=== PATIENT | female | born 1945 | race Caucasian/White ===

== ENCOUNTER 2020-10-14 10:48 | Inpatient (IN) ==
[2020-10-14] MEDS ORDERED: 0.9 % SODIUM CHLORIDE 1,000 ML IV ONE (10:59)
[2020-10-14 11:26] LABS: POC Blood Urea Nitrogen 15 mg/dL (6-20); POC CO2 32 mmol/L (22-30); POC Calcium, Ionized 1.06 mmEq/L (1.16-1.32); POC Chloride 88 mEq/L (96-108); POC Creatinine 1.2 mg/dL (0.6-1.2); POC Glucose, Random 151 mg/dL (70-105); POC Hematocrit 41 % (36-48); POC Potassium 2.7 mEql/L (3.3-5.1); POC Sodium 132 mEq/L (133-145)
--- NOTE | 2020-10-14 11:57 | XRay Report ---
CLINICAL INFORMATION: pneumonia COMPARISON: 09/24/2012 FINDINGS: Heart size, mediastinum and pulmonary vessels are normal. Moderate chronic elevation right diaphragm is unchanged. A small left basilar infiltrate has developed. No effusion. IMPRESSION: Small left basilar infiltrate. Moderate chronic elevation of the right diaphragm Mild ileus - incompletely imaged Interpreted and Authenticated by: Jameson Nguyen 10/14/20
[2020-10-14 11:58] LABS: Basophils # (Auto) 0.06 K/mcL (0.00-0.20); Basophils % (Auto) 0.2 % (0.0-2.0); Eosinophils # (Auto) 0.03 K/mcL (0.00-0.70); Eosinophils % (Auto) 0.1 % (0.0-7.0); Hematocrit 39.2 % (36.0-48.0); Hemoglobin 13.4 g/dL (12.0-15.0); Lymphocytes # (Auto) 0.81 K/mcL (1.50-4.80); Lymphocytes % (Auto) 2.7 % (15.0-49.0); Mean Cell Volume 91.4 fL (80.0-100.0); Mean Corpuscular HGB Conc 34.2 g/dL (31.0-36.0); Mean Platelet Volume 9.2 fL (7.4-10.4); Monocytes # (Auto) 0.77 K/mcL (0.10-0.90); Monocytes % (Auto) 2.6 % (1.0-12.0); Neutrophils % (Auto) 94.4 % (38.0-78.0); Platelet Count 424 K/mcL (140-440); RBC 4.29 M/mcL (4.00-5.20); Red Cell Distribution Width 15.7 % (11.5-14.5); WBC 29.9 K/mcL (4.5-11.0)
[2020-10-14] MEDS ORDERED: VANCOMYCIN PER PHARMACY IV ONE (12:39)
[2020-10-14] MEDS ORDERED: cefTRIAXone 1 GM VIAL IV ONE (12:39)
[2020-10-14] MEDS ORDERED: POTASSIUM CHLORIDE 20 MEQ TABLET PO ONE (12:39)
[2020-10-14] MEDS ORDERED: MAGNESIUM OXIDE 400 MG TABLET PO ONE (12:39)
[2020-10-14] MEDS ORDERED: LACTATED RINGERS 1,000 ML IV ONE (12:39)
--- NOTE | 2020-10-14 12:47 | Emergency Department Note ---
HPI General Chief complaint: Altered Mental Status Stated complaint: altered mental status Time Seen by Provider: 10/14/20 10:51 Source: patient Mode of arrival: wheelchair Limitations: no limitations History of Present Illness HPI Narrative: Patient is a 75-year-old lady who arrives emergency department by private vehicle accompanied by her daughter complaining of hypotension. History is provided by the patient and her daughter and is somewhat limited by the patient's recollection of her symptoms. Patient has been drowsy and less interactive than usual today according to her daughter. Her daughter took her for scheduled outpatient MRI and the MRI staff are quite concerned about the patient's mental status. They also found her to be hypotensive so they sent her to the emergency department for further evaluation. The patient's daughter notes that her blood pressure has been somewhat labile over the past few days. The patient suffered a fall recently and was seen at [facility] and had stitches to her forehead after negative head CT. The patient's daughter thinks she may have actually passed out when standing up due to her low blood pressure. Patient denies any recent fever or chills. She denies any chest pain shortness of breath. She denies any recent vomiting or diarrhea. Related Data Home Medications Medication Instructions Recorded Confirmed HYDROcodone/APAP 10/325MG 1 tab PO Q4HP PRN 11/23/14 10/14/20 aspirin 81 mg PO DAILY 11/23/14 10/14/20 isosorbide mononitrate 60 mg PO DAILY 11/23/14 10/14/20 metoprolol succinate 12.5 mg PO BID 11/23/14 10/14/20 amlodipine 10 mg tablet 10 mg PO QDAY 09/25/20 10/14/20 cholecalciferol (vitamin D3) 100 100 mcg PO QDAY 09/25/20 10/14/20 mcg (4,000 unit) tablet losartan 25 mg tablet 25 mg PO QDAY 09/25/20 10/14/20 naproxen sodium 220 mg PO BID 10/14/20 10/14/20 umeclidinium [Incruse Ellipta] 1 inh INHALATION Q24H 10/14/20 10/14/20 Allergies Allergy/AdvReac Type Severity Reaction Status Date / Time bee venom protein (honey bee) Allergy Severe EXTREME Verified 10/14/20 13:19 HIVES, SWELLING egg [EGG] Allergy Intermediate Swelling Verified 10/14/20 13:17 Influenza Virus Vaccines Allergy Intermediate Swelling Verified 10/14/20 13:19 Sulfa (Sulfonamide Allergy Intermediate HIVES, Verified 10/14/20 13:17 Antibiotics) FACIAL [SULFA (SULFONAMIDE SWELLING ANTIBIOTICS)] aclidinium Allergy Unknown Unknown Verified 10/14/20 13:17 [From Tudorza Pressair] ezetimibe [From Vytorin] Allergy Unknown Unknown Verified 10/14/20 13:17 fentanyl [From Duragesic] Allergy Unknown Unknown Verified 10/14/20 13:19 Penicillins Allergy Unknown Unknown Verified 10/14/20 13:17 simvastatin [From Vytorin] Allergy Unknown Unknown Verified 10/14/20 13:17 acetaminophen AdvReac Mild SICK TO Verified 10/14/20 13:17 [From Darvocet-N] STOMACH Cyclobenzaprine AdvReac Mild DIDNT LIKE Verified 10/14/20 13:[address] IT MADE HER FEEL propoxyphene AdvReac Mild SICK TO Verified 10/14/20 13:17 [From Darvocet-N] STOMACH zinc AdvReac Unknown Unknown Verified 10/14/20 13:17 Review of Systems ROS ROS Narrative: Narrative: All systems ED: reviewed and negative except as stated. Constitutional: Denies fever and chills Cardiovascular: Denies chest pain Respiratory: Denies cough PFSH Narrative Patient History Narrative: Narrative: Medical/Surgical/Family History All Active Problems (Updated 10/14/20 @ 16:53 by Rodri Ramirez DO) Sepsis (Acute) Acute hypotension (Acute) Anxiety (Chronic) Hypercholesterolemia (Chronic) Pressure ulcer of buttock (Chronic) Vitamin D deficiency (Chronic) Hidradenitis suppurativa (Chronic) Overactive bladder (Chronic) Muscle weakness (Chronic) Cutaneous abscess (Chronic) Bowel obstruction (Chronic) Diverticulitis (Chronic) Hypertension (Chronic) Abnormal mammogram (Chronic) Hyperlipidemia (Chronic) Anemia of chronic disease (Chronic) Insomnia (Chronic) Allergic rhinitis (Chronic) Weight loss (Chronic) Coronary artery disease (Chronic) Degenerative joint disease (Chronic) Callus (Chronic) Fatigue (Chronic) Annual physical exam (Chronic) HPV (human papilloma virus) infection (Chronic) Neck pain (Chronic) Dysphagia (Chronic) Weakness (Chronic) Hypokalemia (Chronic) Edema of both lower extremities (Chronic) Spinal stenosis (Chronic) DDD (degenerative disc disease) (Chronic) Knee pain (Chronic) Pap smear abnormality of cervix with LGSIL (Chronic) Paresthesia (Chronic) Smoker (Chronic) Generalized abdominal pain (Chronic) Stress (Chronic) Bronchitis (Chronic) Urinary tract infection (Chronic) Urinary frequency (Chronic) Osteoporosis (Chronic) Encounter for long-term current use of medication (Chronic) Chronic back pain (Chronic) Hearing loss (Chronic) Partial small bowel obstruction (Chronic) Leukocytosis (Chronic) Small bowel obstruction due to adhesions (Chronic) Small bowel obstruction due to postoperative adhesions (Chronic) Medical History Abnormal mammogram Allergic rhinitis Anemia of chronic disease Annual physical exam Anxiety Bowel obstruction Bronchitis Callus Chronic back pain Coronary artery disease Cutaneous abscess DDD (degenerative disc disease) Degenerative joint disease Diverticulitis Dysphagia Edema of both lower extremities Encounter for long-term current use of medication Fatigue Generalized abdominal pain Hearing loss Hidradenitis suppurativa HPV (human papilloma virus) infection Hypercholesterolemia Hyperlipidemia Hypertension Hypokalemia Insomnia Knee pain Leukocytosis Muscle weakness Neck pain Osteoporosis Overactive bladder Pap smear abnormality of cervix with LGSIL Paresthesia Partial small bowel obstruction She is responeding to saline replacement, her sodium is improved. Continue NG tube decompression, NPO. She is also constipated, enema and magnesium laxatives are helping. She will benefit from bowel regimen with daily laxatives. Case discussed with Dr. Burk. Dr. Vázquez back later today. I am available by phone. Pressure ulcer of buttock Small bowel obstruction due to adhesions 1.High-grade small bowel obstruction on CT due to adhesions. -resolved with conservative management. Patient will follow with surgery as outpatient 2. History of CAD managed on aspirin/isosorbide/metoprolol 3. Hyponatremia secondary to nausea vomiting- resolved with crystalloids. Sodium 126->132->141 4.Hyperlipidemia managed on statin 5.DJD stable on home meds 6.history of nicotine dependence- actively smoking. Counseled on smoking cessation Small bowel obstruction due to postoperative adhesions Smoker Spinal stenosis Stress Urinary frequency Urinary tract infection Vitamin D deficiency Weakness Weight loss Surgical History History of appendectomy History of arthroscopy of right knee (~12/07/13) DR SANON History of X 2 History of colonoscopy (~08/2008) DR YI History of exploratory laparotomy (~05/26/15) History of foot surgery History of fusion of cervical spine (~05/05/10) C 5/6, C7/8, History of resection of small bowel (~10/26/12) 12/2012 Family History Brother , 2007 Lymphoma Colon cancer Family/Other Adult onset diabetes mellitus with ketoacidosis Son Diabetes Daughter Bladder cancer Social History Smoking Status: Current every day smoker Alcohol Intake Frequency: does not drink Substance Use: does not use Exam Narrative Narrative: Gen -patient is awake and alert and in no acute distress. HEENT -head is atraumatic. There is no conjunctival pallor or scleral icterus. Mucous membranes are quite dry. The patient is very hard of hearing. CV -S1-S2 regular rate and rhythm. Peripheral pulses are palpable. Resp -breathing is nonlabored. Lungs are clear to auscultation bilaterally. There is no cyanosis. GI - Abdomen is soft and nontender to palpation. There is no guarding or rebound tenderness. Derm -there are 2 small ulcers with surrounding erythema and purulent drainage over the patient's right buttock. There is no palpable fluctuance or crepitus to the soft tissues MSK -present extremities are atraumatic. Psych -patient has appropriate affect. Neuro -patient answers questions appropriately with fluent speech. Patient moves all present extremities equally. General Limitations: no limitations Course Vital Signs Vital signs: Vital Signs Temperature 96.6 F L 10/14/20 10:49 Pulse Rate 95 H 10/14/20 10:49 Respiratory Rate 16 10/14/20 10:49 Blood Pressure 62/39 10/14/20 10:49 Pulse Oximetry (%) 96 10/14/20 10:49 Temperature 96.6 F L 10/14/20 14:57 Pulse Rate 95 H 10/14/20 16:10 Respiratory Rate 14 10/14/20 16:10 Blood Pressure 135/96 10/14/20 16:00 Pulse Oximetry (%) 96 10/14/20 16:10 [facility] Narrative Medical decision making narrative: Patient presents complaining of hypotension with altered mental status. Her mental status greatly improved as her blood pressure did say do not think this was due to acute ischemic stroke or meningitis or encephalitis. Labs remarkable for significant leukocytosis and hypokalemia. Because of this I suspected possible colitis but the patient has not had any diarrhea. I think most likely source of her infection is her ulcers. She does have a questionable infiltrate on her chest x-ray but on review of the images myself I do not appreciate the area of the radiologist concern. She was given broad-spectrum antibiotics IV fluids and had some improvement in her symptoms. I discussed the test results with the patient and her daughter and recommended admission and they were agreeable. I discussed the patient's history examination and diagnostic findings with Dr. Casas, who agrees with the plan of care and accepts admission. Critical care time I provided at least 35 minutes of critical care time. This was separate from any separately billable procedures. The patient was given IV fluids to treat her hypotension and severe sepsis. She was given IV antibiotics to treat her s epsis. She was given magnesium and potassium supplementation to treat her severe hypokalemia and prevent cardiac dysrhythmias. The patient was closely monitored for response to treatment and stability of vital signs throughout their emergency department stay. Lab Data Lab results reviewed: Yes I reviewed the patient's lab results. Result diagrams: 10/14/20 11:11 Labs: Lab Results 10/14/20 10/14/20 10/14/20 Range/Units 11:11 11:11 11:11 WBC 29.9 H (4.5-11.0) K/mcL RBC 4.29 (4.00-5.20) M/mcL Hgb 13.4 (12.0-15.0) g/dL Hct 39.2 (36.0-48.0) % POC Hct 41 (36-48) % MCV 91.4 (80.0-100.0) fL MCH 31.2 (26.0-34.0) pg MCHC 34.2 (31.0-36.0) g/dL RDW 15.7 H (11.5-14.5) % Plt Count 424 (140-440) K/mcL MPV 9.2 (7.4-10.4) fL Neut % (Auto) 94.4 H (38.0-78.0) % Lymph % (Auto) 2.7 L (15.0-49.0) % [place] % (Auto) 2.6 (1.0-12.0) % Eos % (Auto) 0.1 (0.0-7.0) % Baso % (Auto) 0.2 (0.0-2.0) % Lymph # (Auto) 0.81 L (1.50-4.80) K/mcL [place] # (Auto) 0.77 (0.10-0.90) K/mcL Eos # (Auto) 0.03 (0.00-0.70) K/mcL Baso # (Auto) 0.06 (0.00-0.20) K/mcL Absolute Neutrophils 28.18 H (1.80-8.00) K/mcL POC Sodium 132 L (133-145) mEq/L POC Potassium 2.7 L* (3.3-5.1) mEql/L POC Chloride 88 L (96-108) mEq/L POC Total CO2 32 H (22-30) mmol/L POC BUN 15 (6-20) mg/dL POC Creatinine 1.2 (0.6-1.2) mg/dL POC Glucose 151 H (70-105) mg/dL POC WB Ioniz Calcium 1.06 L (1.16-1.32) mmEq/L Procalcitonin 1.97 H (<0.10) ng/mL Urine Color Urine Appearance (Clear) Urine pH (5.0-9.0) Ur Specific [place] (1.000-1.035) Urine Protein (Negative) mg/dL Urine Glucose (UA) (Negative) mg/dL Urine Ketones (Negative) mg/dL Urine Occult Blood (Negative) mg/dL Urine Nitrate (Negative) Urine Bilirubin (Negative) mg/dL Urine Urobilinogen mg/dL Ur Leukocyte Esterase (Negative) /ug Urine RBC (0-3) /hpf Urine WBC (0-4) /hpf Ur Squamous Epith Cells (0-4) /hpf Ur Transition Epith Cell (0-2) /hpf Urine Bacteria (0) /hpf Ur Culture Indicated? 10/14/20 Range/Units 13:04 WBC (4.5-11.0) K/mcL RBC (4.00-5.20) M/mcL Hgb (12.0-15.0) g/dL Hct (36.0-48.0) % POC Hct (36-48) % MCV (80.0-100.0) fL MCH (26.0-34.0) pg MCHC (31.0-36.0) g/dL RDW (11.5-14.5) % Plt Count (140-440) K/mcL MPV (7.4-10.4) fL Neut % (Auto) (38.0-78.0) % Lymph % (Auto) (15.0-49.0) % [place] % (Auto) (1.0-12.0) % Eos % (Auto) (0.0-7.0) % Baso % (Auto) (0.0-2.0) % Lymph # (Auto) (1.50-4.80) K/mcL [place] # (Auto) (0.10-0.90) K/mcL Eos # (Auto) (0.00-0.70) K/mcL Baso # (Auto) (0.00-0.20) K/mcL Absolute Neutrophils (1.80-8.00) K/mcL POC Sodium (133-145) mEq/L POC Potassium (3.3-5.1) mEql/L POC Chloride (96-108) mEq/L POC Total CO2 (22-30) mmol/L POC BUN (6-20) mg/dL POC Creatinine (0.6-1.2) mg/dL POC Glucose (70-105) mg/dL POC WB Ioniz Calcium (1.16-1.32) mmEq/L Procalcitonin (<0.10) ng/mL Urine Color Yellow Urine Appearance Clear (Clear) Urine pH 7.0 (5.0-9.0) Ur Specific [place] 1.006 (1.000-1.035) Urine Protein Negative (Negative) mg/dL Urine Glucose (UA) Negative (Negative) mg/dL Urine Ketones Negative (Negative) mg/dL Urine Occult Blood Negative (Negative) mg/dL Urine Nitrate Negative (Negative) Urine Bilirubin Negative (Negative) mg/dL Urine Urobilinogen Negative mg/dL Ur Leukocyte Esterase 25 A (Negative) /ug Urine RBC 2 (0-3) /hpf Urine WBC 13 H (0-4) /hpf Ur Squamous Epith Cells 2 (0-4) /hpf Ur Transition Epith Cell < 1 (0-2) /hpf Urine Bacteria Few A (0) /hpf Ur Culture Indicated? yes ED POC Tests ED POC Tests: JULITO - SARS Antigen Negative EKG Data EKG #1: EKG attestation: Yes I reviewed and interpreted this EKG. EKG results narrative: EKG performed at 11:25 AM: Sinus rhythm, rate 64. Few PVCs. Normal P wave morphology. There are Q waves present in the inferior leads. No ST segment deviation. T waves are diffusely flattened. Normal CT QRS duration. QTc is prolonged at 509. No old EKG immediately available for comparison. EKG was interpreted by me. Discharge Plan Patient/Caregiver Discharge Instructions Pt seen by RESIDENTIAL MENTAL HEALTH WORKER/PA only: No Clinical Impression: Sepsis, Acute hypotension Patient Disposition: Xfer As Inpt ([facility]) Condition: Fair Discharge Date/Time: 10/14/20 15:01
[2020-10-14] MEDS ORDERED: CEFEPIME 2 GM VIAL IV ONE (12:56)
--- NOTE | 2020-10-14 13:09 | Internal Med History&Physical ---
HPI History of Present Illness Patient information: Note initiated : 10/14/20 at 1:07 pm Service Date, if different from initiated Date: [] Patient: Ana Yee a 75 y/o F admitted on for Altered Mental Status. Chief Complaint: Weakness and confused History of present illness: Ms. Yee is a 75 year old F with history of hypertension, CAD who presented to the ER along with her daughter Ana after she was noted to be profoundly weak lethargic confused during her MRI. The day prior to presentation patient fell while trying to get to her bed and slid down hurting her forehead. She was taken to [facility] ER where he had a negative CT and underwent suturing of the forehead laceration site. She was referred for an MRI of lower back to evaluate possible osteomyelitis and concerns of wound infection. She has been getting lethargic and fatigued and minimally responsive over the last 24 hours and concern was raised during MRI and she was directed to the ER for evaluation. Initial work-up in the ER was consistent with septic shock with white count 30,000, blood pressure 60s and elevated lactate. Patient was probably started on antibiotics after cultures were drawn along with crystalloids with resultant improvement in systolics. Also potassium was noted to be 2.7 and was started on replacement. Subsequently hospitalist service was consulted. Since evaluation suspected left basilar infiltrate/right gluteal wound infection. At the time of my evaluation patient is accompanied with her daughter. She is minimally responsive. She was able to answer some of the question and participating leading questions to review of systems. She denies chest pain, thunderclap headache, unilateral weakness, diarrhea. She has developed right posterior gluteal wound that has been managed by Dr. Sammy Tavares surgery. Review of systems 10 point review system was performed and is negative except for ones discussed above PFSH PFSH All Active Problems (Updated 10/14/20 @ 16:53 by Rodri Ramirez DO) Sepsis (Acute) Acute hypotension (Acute) Anxiety (Chronic) Hypercholesterolemia (Chronic) Pressure ulcer of buttock (Chronic) Vitamin D deficiency (Chronic) Hidradenitis suppurativa (Chronic) Overactive bladder (Chronic) Muscle weakness (Chronic) Cutaneous abscess (Chronic) Bowel obstruction (Chronic) Diverticulitis (Chronic) Hypertension (Chronic) Abnormal mammogram (Chronic) Hyperlipidemia (Chronic) Anemia of chronic disease (Chronic) Insomnia (Chronic) Allergic rhinitis (Chronic) Weight loss (Chronic) Coronary artery disease (Chronic) Degenerative joint disease (Chronic) Callus (Chronic) Fatigue (Chronic) Annual physical exam (Chronic) HPV (human papilloma virus) infection (Chronic) Neck pain (Chronic) Dysphagia (Chronic) Weakness (Chronic) Hypokalemia (Chronic) Edema of both lower extremities (Chronic) Spinal stenosis (Chronic) DDD (degenerative disc disease) (Chronic) Knee pain (Chronic) Pap smear abnormality of cervix with LGSIL (Chronic) Paresthesia (Chronic) Smoker (Chronic) Generalized abdominal pain (Chronic) Stress (Chronic) Bronchitis (Chronic) Urinary tract infection (Chronic) Urinary frequency (Chronic) Osteoporosis (Chronic) Encounter for long-term current use of medication (Chronic) Chronic back pain (Chronic) Hearing loss (Chronic) Partial small bowel obstruction (Chronic) Leukocytosis (Chronic) Small bowel obstruction due to adhesions (Chronic) Small bowel obstruction due to postoperative adhesions (Chronic) Medical History Abnormal mammogram Allergic rhinitis Anemia of chronic disease Annual physical exam Anxiety Bowel obstruction Bronchitis Callus Chronic back pain Coronary artery disease Cutaneous abscess DDD (degenerative disc disease) Degenerative joint disease Diverticulitis Dysphagia Edema of both lower extremities Encounter for long-term current use of medication Fatigue Generalized abdominal pain Hearing loss Hidradenitis suppurativa HPV (human papilloma virus) infection Hypercholesterolemia Hyperlipidemia Hypertension Hypokalemia Insomnia Knee pain Leukocytosis Muscle weakness Neck pain Osteoporosis Overactive bladder Pap smear abnormality of cervix with LGSIL Paresthesia Partial small bowel obstruction She is responeding to saline replacement, her sodium is improved. Continue NG tube decompression, NPO. She is also constipated, enema and magnesium laxatives are helping. She will benefit from bowel regimen with daily laxatives. Case discussed with Dr. Burk. Dr. Vázquez back later today. I am available by phone. Pressure ulcer of buttock Small bowel obstruction due to adhesions 1.High-grade small bowel obstruction on CT due to adhesions. -resolved with conservative management. Patient will follow with surgery as outpatient 2. History of CAD managed on aspirin/isosorbide/metoprolol 3. Hyponatremia secondary to nausea vomiting- resolved with crystalloids. Sodium 126->132->141 4.Hyperlipidemia managed on statin 5.DJD stable on home meds 6.history of nicotine dependence- actively smoking. Counseled on smoking cessation Small bowel obstruction due to postoperative adhesions Smoker Spinal stenosis Stress Urinary frequency Urinary tract infection Vitamin D deficiency Weakness Weight loss Surgical History History of appendectomy History of arthroscopy of right knee (~12/07/13) DR SANON History of X 2 History of colonoscopy (~08/2008) DR YI History of exploratory laparotomy (~05/26/15) History of foot surgery History of fusion of cervical spine (~05/05/10) C 5/6, C7/8, History of resection of small bowel (~10/26/12) 12/2012 Family History Brother , 2007 Lymphoma Colon cancer Family/Other Adult onset diabetes mellitus with ketoacidosis Son Diabetes Daughter Bladder cancer Social History marital status: occupational status: disabled other: HAD 5 BROTHERS smoking status: Current every day smoker alcohol intake frequency: does not drink substance use type: does not use MEDS/ALLERGIES Home Medications and Allergies Home Medications Medication Instructions Recorded Confirmed Type HYDROcodone/APAP 10/325MG 1 tab PO Q4HP PRN 11/23/14 10/14/20 History aspirin 81 mg PO DAILY 11/23/14 10/14/20 History isosorbide mononitrate 60 mg PO DAILY 11/23/14 10/14/20 History amlodipine 10 mg tablet 10 mg PO QDAY 09/25/20 10/14/20 History cholecalciferol (vitamin D3) 100 100 mcg PO QDAY 09/25/20 10/14/20 History mcg (4,000 unit) tablet losartan 25 mg tablet 25 mg PO QDAY 09/25/20 10/14/20 History naproxen sodium 220 mg PO BID 10/14/20 10/14/20 History umeclidinium [Incruse Ellipta] 1 inh INHALATION Q24H 10/14/20 10/14/20 History metoprolol tartrate 12.5 mg PO BID 10/15/20 10/15/20 History Allergies Allergy/AdvReac Type Severity Reaction Status Date / Time bee venom protein (honey bee) Allergy Severe EXTREME Verified 10/14/20 13:19 HIVES, SWELLING egg [EGG] Allergy Intermediate Swelling Verified 10/14/20 13:17 Influenza Virus Vaccines Allergy Intermediate Swelling Verified 10/14/20 13:19 Sulfa (Sulfonamide Allergy Intermediate HIVES, Verified 10/14/20 13:17 Antibiotics) FACIAL [SULFA (SULFONAMIDE SWELLING ANTIBIOTICS)] aclidinium Allergy Unknown Unknown Verified 10/14/20 13:17 [From Tudorza Pressair] ezetimibe [From Vytorin] Allergy Unknown Unknown Verified 10/14/20 13:17 fentanyl [From Duragesic] Allergy Unknown Unknown Verified 10/14/20 13:19 Penicillins Allergy Unknown Unknown Verified 10/14/20 13:17 simvastatin [From Vytorin] Allergy Unknown Unknown Verified 10/14/20 13:17 acetaminophen AdvReac Mild SICK TO Verified 10/14/20 13:17 [From Darvocet-N] STOMACH Cyclobenzaprine AdvReac Mild DIDNT LIKE Verified 10/14/20 13:[address] THE [address] IT MADE HER FEEL propoxyphene AdvReac Mild SICK TO Verified 10/14/20 13:17 [From Darvocet-N] STOMACH zinc AdvReac Unknown Unknown Verified 10/14/20 13:17 EXAM Constitutional Vitals: Temp Pulse Resp BP Pulse Ox 96.6 F L 74 15 127/55 95 10/14/20 10:49 10/14/20 11:00 10/14/20 12:46 10/14/20 12:46 10/14/20 11:00 Fatigue lethargic lean and frail elderly with a BMI of 19 Head normocephalic Oral cavity dry No ear or nose discharge Eye no subconjunctival pallor, movement symmetrical S1-S2 occasionally irregular Nonlabored breathing Nondistended nontender abdomen Right buttock/gluteal ulcer X 2, lower extremity no cyanosis clubbing Skin no suspicious lesion Psych anxious and lethargic Neuro GCS 7 DATA Data Completed and Pending Labs: Labs from last 24 hours 10/14/20 10/14/20 11:11 11:11 WBC 29.9 H RBC 4.29 Hgb 13.4 Hct 39.2 POC Hct 41 MCV 91.4 MCH 31.2 MCHC 34.2 RDW 15.7 H Plt Count 424 MPV 9.2 Neut % (Auto) 94.4 H Lymph % (Auto) 2.7 L Glades % (Auto) 2.6 Eos % (Auto) 0.1 Baso % (Auto) 0.2 Lymph # (Auto) 0.81 L [place] # (Auto) 0.77 Eos # (Auto) 0.03 Baso # (Auto) 0.06 Absolute Neutrophils 28.18 H POC Sodium 132 L POC Potassium 2.7 L* POC Chloride 88 L POC Total CO2 32 H POC BUN 15 POC Creatinine 1.2 POC Glucose 151 H POC WB Ioniz Calcium 1.06 L A/P Narrative A/P Narrative: * Septic shock, crystalloid/vasopressors/venous lactate trending/broad antibiotic coverage/pancultures. Continue aggressive source evaluation * Left lower lobe pneumonia-antibiotic coverage/aspiration precaution * Acute change mental status secondary to septic shock endorgan dysfunction. * Chronic decubiti/right gluteal ulcer with suspicion of underlying abscess or osteomyelitis-surgery consult/MRI a.m. * Hypokalemia-replace as indicated * History of CAD continue aspirin. Restart beta-maggi once septic shock resolves * Anxiety disorder-hold oral medications until septic shock resolves * Full code * Prophylaxis Heparin PLAN * PCU admit * Vasopressors/crystalloid/antibiotics/pancultures * Decubitus care * MRI in a.m. * Surgery consult * Pre-existing medical condition management home medications * PT OT nutrition support * Discharge planning per case management Time Spent With Patient Time: Time spent history physical over 70 minutes, additional 35 minutes critical care time spent on management of septic shock
[2020-10-14] MEDS ORDERED: VANCOMYCIN 1,000 MG in 0.9 % SODIUM CHLORIDE 250 ML IV ONE (13:45)
[2020-10-14 14:11] LABS: Appearance,Urine CLEAR (Clear); Bacteria,Urine FEW /hpf (0); Bilirubin,Urine Negative (Negative); Color,Urine YELLOW; Culture Indicated,Urine yes; Glucose,Urine (UA) Negative (Negative); Ketones,Urine Negative (Negative); Leukocyte Esterase,Urine 25 /ug (Negative); Nitrate,Urine Negative (Negative); Protein,Urine Negative (Negative); Specific Gravity,Urine 1.006 (1.000-1.035); Urine Blood Negative (Negative); Urine RBC 2 /hpf (0-3); Urine Squamous Epithelial Cell 2 /hpf (0-4); Urine Transitional Epi Cells < 1 /hpf (0-2); Urine WBC 13 /hpf (0-4); Urobilinogen,Urine Negative
[2020-10-14] MEDS ORDERED: VANCOMYCIN PER PHARMACY IV SCH (14:59)
[2020-10-14] MEDS ORDERED: MAGNESIUM SULFATE 2 GM/50 ML BAG IV PRN (14:59)
[2020-10-14] MEDS ORDERED: POTASSIUM CHLORIDE 40 MEQ in DEXTROSE 5% IN WATER 500 ML IV PRN (14:59)
[2020-10-14] MEDS ORDERED: NOREPINEPHRINE BITARTRATE 8 MG in 0.9 % SODIUM CHLORIDE 242 ML IV PRN (14:59)
[2020-10-14] MEDS ORDERED: MELATONIN 3 MG TABLET PO PRN (14:59)
[2020-10-14] MEDS ORDERED: POTASSIUM CHLORIDE 20 MEQ PACKET PO PRN (14:59)
[2020-10-14] MEDS ORDERED: ONDANSETRON 4 MG/2 ML VIAL IV PRN (14:59)
[2020-10-14] MEDS ORDERED: 0.9 % SODIUM CHLORIDE 1,000 ML IV SCH ×2 (14:59)
[2020-10-14] MEDS ORDERED: ACETAMINOPHEN 325 MG TABLET PO PRN (14:59)
[2020-10-14] MEDS ORDERED: ACETAMINOPHEN 650 MG/65 ML BAG IV PRN (14:59)
[2020-10-14] MEDS ORDERED: BISACODYL 10 MG SUPP.RECT PR PRN (14:59)
[2020-10-14] MEDS ORDERED: ONDANSETRON 4 MG ODT TABLET SL PRN (14:59)
[2020-10-14] MEDS ORDERED: CEFEPIME 2 GM in DEXTROSE 5% IN WATER 50 ML IV SCH (14:59)
[2020-10-14] MEDS ORDERED: POLYETHYLENE GLYCOL 3350 17 GM PACKET PO PRN (14:59)
[2020-10-14] MEDS: 0.9 % SODIUM CHLORIDE 250 ML IV SCH (15:39)
[2020-10-14] MEDS: 0.9 % SODIUM CHLORIDE 10 ML SYRINGE IV SCH ×2 (15:40→21:21)
--- NOTE | 2020-10-14 16:06 | EKG ---
[facility] Test Date: 2020-10-14 Pat Name: Ana Yee Department: ED Room: Gender: Female Casey Saw Operator: daphne : 1945 Requested By: Rodri Ramirez Order Number: [id number] Reading MD: Tim Machado M.D. Measurements Intervals Hermann Rate: 64 P: UT: QRS: 65 QRSD: 104 T: 228 QT: 493 QTc: 509 Interpretive Statements SUPRVENTRICULAR RHYTHM PREMATURE VENTRICULAR CONTRACTIONS NO PRIOR TRACING FOR COMPARISON Probable LVH with secondary repol abnrm Inferior infarct, age indeterminate Prolonged QT interval Baseline wander in lead(s) III,V1 Electronically Signed On 10-14-2020 16:06:25 PDT by Tim Machado M.D. /[facility]/M0/[id number].pdf
[2020-10-14] MEDS ORDERED: POTASSIUM CHLORIDE 20 MEQ/10 ML VIAL IV ONE (19:06)
[2020-10-14] MEDS ORDERED: SENNOSIDES/DOCUSATE SODIUM 1 TAB TABLET PO SCH (21:00)
[2020-10-14] MEDS: DOCUSATE SODIUM 100 MG CAPSULE PO SCH (21:19)
[2020-10-14] MEDS: HEPARIN 5,000 UNIT/ML VIAL SQ SCH (21:19)
[2020-10-14] MEDS: CEFEPIME 2 GM VIAL IV SCH (23:41)
[2020-10-15] MEDS: 0.9 % SODIUM CHLORIDE 250 ML IV SCH ×3 (02:52→21:52)
[2020-10-15] MEDS: 0.9 % SODIUM CHLORIDE 10 ML SYRINGE IV SCH ×3 (05:23→20:24)
[2020-10-15 06:44] LABS: Basophils # (Auto) 0.03 K/mcL (0.00-0.20); Basophils % (Auto) 0.2 % (0.0-2.0); Eosinophils # (Auto) 0.03 K/mcL (0.00-0.70); Eosinophils % (Auto) 0.2 % (0.0-7.0); Hematocrit 39.2 % (36.0-48.0); Hemoglobin 13.1 g/dL (12.0-15.0); Lymphocytes # (Auto) 0.86 K/mcL (1.50-4.80); Lymphocytes % (Auto) 4.7 % (15.0-49.0); Mean Cell Volume 91.2 fL (80.0-100.0); Mean Corpuscular HGB Conc 33.4 g/dL (31.0-36.0); Mean Platelet Volume 9.4 fL (7.4-10.4); Monocytes # (Auto) 0.57 K/mcL (0.10-0.90); Monocytes % (Auto) 3.1 % (1.0-12.0); Neutrophils % (Auto) 91.8 % (38.0-78.0); Platelet Count 400 K/mcL (140-440); Red Cell Distribution Width 15.9 % (11.5-14.5); WBC 18.1 K/mcL (4.5-11.0)
[2020-10-15 07:09] LABS: ALT/SGPT 11 U/L (<40); AST/SGOT 21 U/L (<32); Albumin 2.6 gm/dL (3.2-5.2); Alkaline Phosphatase 128 U/L (39-117); Bilirubin,Direct < 0.2 mg/dL (0-0.3); Bilirubin,Total 0.4 mg/dL (0.1-1.0); Blood Urea Nitrogen 9 mg/dL (8-23); Calcium 7.9 mg/dL (8.6-10.4); Carbon Dioxide 27 mmol/L (22-30); Chloride 102 mmol/L (96-108); Globulin 2.7 gm/dL (2.2-3.7); Glomerular Filtration Rate 88; Glucose 72 mg/dL (70-105); Lactate Dehydrogenase 243 U/L (135-225); Phosphorous 1.6 mg/dL (2.5-4.5); Triglycerides 78 mg/dL (<150); Uric Acid 3.8 mg/dL (2.5-8.0)
[2020-10-15] MEDS: DOCUSATE SODIUM 100 MG CAPSULE PO SCH ×2 (07:49→20:18)
[2020-10-15] MEDS ORDERED: MULTIVIT,THER IRON,CA,FA & MIN 1 TABLET PO SCH (09:00)
[2020-10-15] MEDS: CEFEPIME 2 GM VIAL IV SCH ×2 (09:26→20:23)
[2020-10-15] MEDS: HEPARIN 5,000 UNIT/ML VIAL SQ SCH ×2 (09:30→20:23)
[2020-10-15] MEDS ORDERED: MAGNESIUM SULFATE 2 GM/50 ML BAG IV PRN (09:32)
[2020-10-15] MEDS ORDERED: ONDANSETRON 4 MG ODT TABLET SL PRN (09:32)
[2020-10-15] MEDS ORDERED: ACETAMINOPHEN 650 MG/65 ML BAG IV PRN (09:32)
[2020-10-15] MEDS ORDERED: BISACODYL 10 MG SUPP.RECT PR PRN (09:32)
[2020-10-15] MEDS ORDERED: APAP PO PRN (09:32)
[2020-10-15] MEDS ORDERED: ONDANSETRON 4 MG/2 ML VIAL IV PRN (09:32)
[2020-10-15] MEDS ORDERED: HYDROCODONE PO PRN (09:32)
[2020-10-15] MEDS ORDERED: VANCOMYCIN PER PHARMACY IV SCH (09:32)
[2020-10-15] MEDS ORDERED: ACETAMINOPHEN 325 MG TABLET PO PRN (09:32)
[2020-10-15] MEDS ORDERED: POLYETHYLENE GLYCOL 3350 17 GM PACKET PO PRN (09:32)
[2020-10-15] MEDS ORDERED: POTASSIUM CHLORIDE 40 MEQ in DEXTROSE 5% IN WATER 500 ML IV PRN (09:32)
[2020-10-15] MEDS ORDERED: MELATONIN 3 MG TABLET PO PRN (09:32)
[2020-10-15] MEDS ORDERED: HYDROcodone/APAP 10/325MG TABLET PO PRN (09:55)
[2020-10-15] MEDS ORDERED: POTASSIUM PHOSPHATE 40 MEQ in DEXTROSE 5% IN WATER 500 ML IV ONE (10:00)
[2020-10-15] MEDS ORDERED: VANCOMYCIN 750 MG in 0.9 % SODIUM CHLORIDE 250 ML IV SCH (10:00)
--- NOTE | 2020-10-15 10:47 | Internal Med Progress Note ---
SUBJECTIVE Subjective Patient information: Note initiated : 10/15/20 at 10:44 am Service Date, if different from initiated Date: [] Patient: Aan Yee a 75 y/o F admitted on 10/14/20 for Altered Mental Status. Chief Complaint: [] Interval history: History of present illness: Ms. Yee is a 75 year old F with history of hypertension, CAD who presented to the ER along with her daughter Ana after she was noted to be profoundly weak lethargic confused during her MRI. The day prior to presentation patient fell while trying to get to her bed and slid down hurting her forehead. She was taken to [facility] ER where he had a negative CT and underwent suturing of the forehead laceration site. She was referred for an MRI of lower back to evaluate possible osteomyelitis and concerns of wound infection. She has been getting lethargic and fatigued and minimally responsive over the last 24 hours and concern was raised during MRI and she was directed to the ER for evaluation. Initial work-up in the ER was consistent with septic shock with white count 30,000, blood pressure 60s and elevated lactate. Patient was probably started on antibiotics after cultures were drawn along with crystalloids with resultant improvement in systolics. Also potassium was noted to be 2.7 and was started on replacement. Subsequently hospitalist service was consulted. Since evaluation suspected left basilar infiltrate/right gluteal wound infection. At the time of my evaluation patient is accompanied with her daughter. She is minimally responsive. She was able to answer some of the question and participating leading questions to review of systems. She denies chest pain, thunderclap headache, unilateral weakness, diarrhea. She has developed right posterior gluteal wound that has been managed by Dr. Sammy Tavares surgery. 10/15-clinically improving and responding to antibiotics. Blood pressure systolics at goal. Improving endorgan dysfunction. MRI lower back pending. WBC down to 18 from 30 K, lactic acid downtrending, potassium 3.3 on repla cement, phosphorus 1.6 on replacement, pancultures pending Constitutional Vitals: Vital Signs Temp Pulse Resp BP Pulse Ox 98.4 F 111 H 21 74/63 100 10/15/20 04:08 10/15/20 08:05 10/15/20 08:05 10/15/20 08:05 10/15/20 08:05 Period Temp Pulse Resp BP Sys/Bartlett Pulse Ox Last 24 Hr 96.6 F-98.4 F 43-111 13-28 62-156/39-98 95-100 Intake and Output 10/14/20 10/15/20 10/15/20 21:59 05:59 13:59 Intake Total 2250 520 250 Output Total 750 552 154 Balance 1500 -32 96 Weight 45.722 kg Intermittently confused. Occasionally irritable Nonlabored breathing Minimal anxiety No telemetry events Intake & Output: Intake & Output 10/14/20 10/15/20 10/15/20 21:59 05:59 13:59 Intake Total 2250 520 250 Output Total 750 552 154 Balance 1500 -32 96 Weight 45.722 kg Intake: IV 2250 520 250 Sodium Chloride 0.9% 1,000 ml @ 1000 Wide Open IV BOLUS [facility] Rx#: [id number] Lactated Ringers 1,000 ml @ 1000 Wide Open IV BOLUS ONE Rx#: [id number] Potassium Chloride 40 Meq In 520 Dextrose 5% in Water 500 ml @ 130 mls/hr IV UD PRN Rx#: [id number] Vancomycin 750 mg In Sodium 250 250 Chloride 0.9% 250 ml @ 250 mls/ hr IV Q24H [facility] Rx#:[id number] Output: Void Amount 750 550 150 # of times incontinent of urine 2 4 Other: Meal Dinner Percent of Meal Consumed 10% Urine Appearance Clear Clear Urine Color Bright Yellow Straw Urine Odor Normal Stool Size Small Moderate Moderate Stool Color Brown Brown Stool Consistency Loose Loose Loose # Voids 1 # Bowel Movements 1 1 # of times incontinent of 1 1 Bowels OBJ DATA Labs CBC & Chem 7: 10/15/20 05:12 10/15/20 05:11 Labs: Abnormal Lab Results 10/15/20 10/15/20 10/14/20 05:12 05:11 13:04 WBC 18.1 H RDW 15.9 H Neut % (Auto) 91.8 H Lymph % (Auto) 4.7 L Lymph # (Auto) 0.86 L Absolute Neutrophils 16.63 H POC Sodium POC Potassium POC Chloride POC Total CO2 POC Glucose Calcium 7.9 L POC WB Ioniz Calcium Phosphorus 1.6 L Alkaline Phosphatase 128 H Lactate Dehydrogenase 243 H Total Protein 5.3 L Albumin 2.6 L Procalcitonin Ur Leukocyte Esterase 25 A Urine WBC 13 H Urine Bacteria Few A 10/14/20 10/14/20 10/14/20 11:11 11:11 11:11 WBC 29.9 H RDW 15.7 H Neut % (Auto) 94.4 H Lymph % (Auto) 2.7 L Lymph # (Auto) 0.81 L Absolute Neutrophils 28.18 H POC Sodium 132 L POC Potassium 2.7 L* POC Chloride 88 L POC Total CO2 32 H POC Glucose 151 H Calcium POC WB Ioniz Calcium 1.06 L Phosphorus Alkaline Phosphatase Lactate Dehydrogenase Total Protein Albumin Procalcitonin 1.97 H Ur Leukocyte Esterase Urine WBC Urine Bacteria Meds: Medications Acetaminophen (Acetaminophen 325 Mg Tablet) 650 mg PO Q4-6HP PRN; Protocol PRN Reason: Per Pain Protocol/Fever > 101 Hydrocodone Bitart/Acetaminophen (Hydrocodone/Apap 10/325mg Tablet) 1 tab PO Q4HP PRN; Protocol PRN Reason: Per Pain Protocol Aspirin (Aspirin 81 Mg Tab.Chew) 81 mg PO DAILY [facility] Bisacodyl (Bisacodyl 10 Mg Supp.Rect) 10 mg SD Q2-3DAYS PRN PRN Reason: Constipation Cefepime HCl (Cefepime 2 Gm Vial) 2 gm IV Q12H [facility] Docusate Sodium (Docusate Sodium 100 Mg Capsule) 100 mg PO BID [facility] Heparin Sodium (Porcine) (Heparin 5,000 Unit/Ml Vial) 5,000 unit SQ Q12 [facility] Sodium Chloride (Sodium Chloride 0.9%) 250 mls @ 20 mls/hr IV .[id number] [facility] Last Admin: 10/15/20 09:55 Dose: Not Given Documented by: Sodium Chloride (Sodium Chloride 0.9%) 1,000 mls @ 50 mls/hr IV .Q20H [facility] Stop: 10/17/20 02:58 Acetaminophen (Ofirmev) 650 mg in 65 mls @ 130 mls/hr IV Q6HP PRN; Protocol PRN Reason: Per Pain Protocol/Fever > 101 Magnesium Sulfate (Magnesium Sulfate) 2 gm in 50 mls @ 50 mls/hr IV UD PRN PRN Reason: MG = or < 1.7 Potassium Chloride 40 meq/ (Dextrose) 520 mls @ 130 mls/hr IV UD PRN PRN Reason: K+ = or < 3.5 Potassium Phosphate 40 meq/ (Dextrose) 509.0909 mls @ 127.273 mls/hr IV ONCE ONE Stop: 10/15/20 13:59 Vancomycin HCl 750 mg/ Sodium (Chloride) 250 mls @ 250 mls/hr IV DAILY [facility] Iron Carb/Multivit/[place]/Folic Acid (Multivit,Ther Iron,Ca,Fa & Min 1 Tablet) 1 tab PO DAILY [facility] Isosorbide Mononitrate (Isosorbide Mononitrate 60 Mg Tab.Xl.24h) 60 mg PO DAILY [facility] Melatonin (Melatonin 3 Mg Tablet) 3 mg PO HSP PRN PRN Reason: Insomnia Metoprolol Tartrate (Metoprolol Tartrate 25 Mg Tablet) 12.5 mg PO BID [facility] Ondansetron HCl (Ondansetron 4 Mg Odt Tablet) 4 mg SL Q4-6HP PRN; Protocol PRN Reason: Nausea And Vomiting Ondansetron HCl (Ondansetron 4 Mg/2 Ml Vial) 4 mg IV Q4-6HP PRN; Protocol PRN Reason: Nausea And Vomiting Polyethylene Glycol (Polyethylene Glycol 3350 17 Gm Packet) 17 gm PO DAILYP PRN PRN Reason: Constipation Potassium Chloride (Potassium Chloride 20 Meq Packet) 40 meq PO DAILYP PRN PRN Reason: K+ < 3.5 Senna/Docusate Sodium (Sennosides/Docusate Sodium 1 Tab Tablet) 1 tab PO HS [facility] Sodium Chloride (0.9 % Sodium Chloride 10 Ml Syringe) 10 ml IV Q8 [facility] Vancomycin HCl (Vancomycin Per Pharmacy) 1 order IV UD FERNANDEZ; Protocol A/P Narrative A/P Narrative: * Septic shock, -clinically resolved with aggressive crystalloid/antibiotics/management per guidelines. Improved endorgan dysfunction * Left lower lobe pneumonia-clinically improving on antibiotic c overage/aspiration precaution * Acute change mental status secondary to septic shock endorgan dysfunction. Gradual improvement noted * Chronic decubiti/right gluteal ulcer with suspicion of underlying abscess or osteomyelitis- surgery Dr. Sammy Tavares consulted/MRI today * Low potassium and phosphorus on replacement * History of CAD continue aspirin. Restart beta-maggi once septic shock resolves * Anxiety disorder-hold oral medications until septic shock resolves * History of tobacco smoking dependence * Full code * Prophylaxis Heparin PLAN * Continue sepsis management per guidelines * Decubitus care per surgery * MRI in a.m. * Pre-existing medical condition management home medications * PT OT nutrition support * Discharge planning per case management Time Spent With Patient Time: Total time spent is greater than 50% in coordination of care (as documented) at patient's floor/unit and/or counseling patient: QUALITY VTE Deep Vein Thrombosis/Pulmonary Embolism Present on Admission: No
[2020-10-15] MEDS: 0.9 % SODIUM CHLORIDE 1,000 ML IV SCH (11:12)
[2020-10-15] MEDS ORDERED: GADOBENATE DIMEGLUMINE 15 ML/VIAL IV ONE (15:06)
--- NOTE | 2020-10-15 15:47 | General Surgery Consult Note ---
HPI Data of Consult Primary Care Provider: Unknown Unknown Consult Narrative Reason for consult: Sepsis History of present illness: This is a pleasant 75-year-old female known to me from recent clinic visit secondary to nonhealing right buttocks wound. I had referred her for MRI, however when she presented to get her MRI patient was found to be in sepsis. She was admitted and started on antibiotics. She is now much improved. I was asked to see the patient to evaluate the prior wound. Patient is receiving MRI today. She has no fevers chills nausea or vomiting at this time. cc:: CC: Wayne Casas Review of Systems Review of systems: All systems are reviewed, negative other than above PFSH PFSH All Active Problems Sepsis (Acute) Acute hypotension (Acute) Anxiety (Chronic) Hypercholesterolemia (Chronic) Pressure ulcer of buttock (Chronic) Vitamin D deficiency (Chronic) Hidradenitis suppurativa (Chronic) Overactive bladder (Chronic) Muscle weakness (Chronic) Cutaneous abscess (Chronic) Bowel obstruction (Chronic) Diverticulitis (Chronic) Hypertension (Chronic) Abnormal mammogram (Chronic) Hyperlipidemia (Chronic) Anemia of chronic disease (Chronic) Insomnia (Chronic) Allergic rhinitis (Chronic) Weight loss (Chronic) Coronary artery disease (Chronic) Degenerative joint disease (Chronic) Callus (Chronic) Fatigue (Chronic) Annual physical exam (Chronic) HPV (human papilloma virus) infection (Chronic) Neck pain (Chronic) Dysphagia (Chronic) Weakness (Chronic) Hypokalemia (Chronic) Edema of both lower extremities (Chronic) Spinal stenosis (Chronic) DDD (degenerative disc disease) (Chronic) Knee pain (Chronic) Pap smear abnormality of cervix with LGSIL (Chronic) Paresthesia (Chronic) Smoker (Chronic) Generalized abdominal pain (Chronic) Stress (Chronic) Bronchitis (Chronic) Urinary tract infection (Chronic) Urinary frequency (Chronic) Osteoporosis (Chronic) Encounter for long-term current use of medication (Chronic) Chronic back pain (Chronic) Hearing loss (Chronic) Partial small bowel obstruction (Chronic) Leukocytosis (Chronic) Small bowel obstruction due to adhesions (Chronic) Small bowel obstruction due to postoperative adhesions (Chronic) Medical History Abnormal mammogram Allergic rhinitis Anemia of chronic disease Annual physical exam Anxiety Bowel obstruction Bronchitis Callus Chronic back pain Coronary artery disease Cutaneous abscess DDD (degenerative disc disease) Degenerative joint disease Diverticulitis Dysphagia Edema of both lower extremities Encounter for long-term current use of medication Fatigue Generalized abdominal pain Hearing loss Hidradenitis suppurativa HPV (human papilloma virus) infection Hypercholesterolemia Hyperlipidemia Hypertension Hypokalemia Insomnia Knee pain Leukocytosis Muscle weakness Neck pain Osteoporosis Overactive bladder Pap smear abnormality of cervix with LGSIL Paresthesia Partial small bowel obstruction She is responeding to saline replacement, her sodium is improved. Continue NG tube decompression, NPO. She is also constipated, enema and magnesium laxatives are helping. She will benefit from bowel regimen with daily laxatives. Case discussed with Dr. Burk. Dr. Vázquez back later today. I am available by phone. Pressure ulcer of buttock Small bowel obstruction due to adhesions 1.High-grade small bowel obstruction on CT due to adhesions. -resolved with conservative management. Patient will follow with surgery as outpatient 2. History of CAD managed on aspirin/isosorbide/metoprolol 3. Hyponatremia secondary to nausea vomiting- resolved with crystalloids. Sodium 126->132->141 4.Hyperlipidemia managed on statin 5.DJD stable on home meds 6.history of nicotine dependence- actively smoking. Counseled on smoking cessation Small bowel obstruction due to postoperative adhesions Smoker Spinal stenosis Stress Urinary frequency Urinary tract infection Vitamin D deficiency Weakness Weight loss Surgical History History of appendectomy History of arthroscopy of right knee (~12/07/13) DR SANON History of X 2 History of colonoscopy (~08/2008) DR YI History of exploratory laparotomy (~05/26/15) History of foot surgery History of fusion of cervical spine (~05/05/10) C 5/6, C7/8, History of resection of small bowel (~10/26/12) 12/2012 Family History Brother , 2007 Lymphoma Colon cancer Family/Other Adult onset diabetes mellitus with ketoacidosis Son Diabetes Daughter Bladder cancer Social History marital status: occupational status: disabled other: HAD 5 BROTHERS smoking status: Current every day smoker alcohol intake frequency: does not drink substance use type: does not use MEDS/ALLERGIES Home Medications and Allergies Home Medications Medication Instructions Recorded Confirmed Type HYDROcodone/APAP 10/325MG 1 tab PO Q4HP PRN 11/23/14 10/14/20 History aspirin 81 mg PO DAILY 11/23/14 10/14/20 History isosorbide mononitrate 60 mg PO DAILY 11/23/14 10/14/20 History amlodipine 10 mg tablet 10 mg PO QDAY 09/25/20 10/14/20 History cholecalciferol (vitamin D3) 100 100 mcg PO QDAY 09/25/20 10/14/20 History mcg (4,000 unit) tablet losartan 25 mg tablet 25 mg PO QDAY 09/25/20 10/14/20 History naproxen sodium 220 mg PO BID 10/14/20 10/14/20 History umeclidinium [Incruse Ellipta] 1 inh INHALATION Q24H 10/14/20 10/14/20 History metoprolol tartrate 12.5 mg PO BID 10/15/20 10/15/20 History Allergies Allergy/AdvReac Type Severity Reaction Status Date / Time bee venom protein (honey bee) Allergy Severe EXTREME Verified 10/14/20 13:19 HIVES, SWELLING egg [EGG] Allergy Intermediate Swelling Verified 10/14/20 13:17 Influenza Virus Vaccines Allergy Intermediate Swelling Verified 10/14/20 13:19 Sulfa (Sulfonamide Allergy Intermediate HIVES, Verified 10/14/20 13:17 Antibiotics) FACIAL [SULFA (SULFONAMIDE SWELLING ANTIBIOTICS)] aclidinium Allergy Unknown Unknown Verified 10/14/20 13:17 [From Tudorza Pressair] ezetimibe [From Vytorin] Allergy Unknown Unknown Verified 10/14/20 13:17 fentanyl [From Duragesic] Allergy Unknown Unknown Verified 10/14/20 13:19 Penicillins Allergy Unknown Unknown Verified 10/14/20 13:17 simvastatin [From Vytorin] Allergy Unknown Unknown Verified 10/14/20 13:17 acetaminophen AdvReac Mild SICK TO Verified 10/14/20 13:17 [From Darvocet-N] STOMACH Cyclobenzaprine AdvReac Mild DIDNT LIKE Verified 10/14/20 13:[address] THE [address] IT MADE HER FEEL propoxyphene AdvReac Mild SICK TO Verified 10/14/20 13:17 [From Darvocet-N] STOMACH zinc AdvReac Unknown Unknown Verified 10/14/20 13:17 Physical Examination Vital Signs Vital signs: Temp Pulse Resp BP Pulse Ox 98.2 F 92 H 20 144/71 96 10/15/20 12:00 10/15/20 14:01 10/15/20 14:01 10/15/20 14:01 10/15/20 14:01 General physical appearance General physical exam: well developed, well nourished and no distress Eyes Eye exam: PERRL and normal ocular movement ENT ENT exam: normal pinna, normal nares, normal mucosa, no hearing loss and no congestion Head Head exam IM: Present atraumatic and normocephalic Neck Neck exam: no masses, no bruits, trachea midline, no lymphadenopathy and no venous distension Cardiovascular Cardiovascular exam IM: Present normal rate and rhythm Respiratory Respiratory exam: normal expansion, normal respiratory effort, clear to percussion and clear to auscultation Abdomen Abdomen: Present soft, non tender and bowel sounds Hernia: Present none Genitourinary Genitourinary (Female): Present normal external genitalia Rectum Rectum: Present normal sphincter tone, no hemorrhoids, no tenderness, no masses and no bleeding Integumentary Integumentary: Present no rash, no growths and no abnormal pigmentation Neurologic Neurologic: Present normal coordination and normal sensation Musculoskeletal Musculoskeletal: Present normal gait, normal posture and other (Previously noted buttocks wound is unchanged, no evidence of abscess at this time.) Psychiatric Psychiatric: Present oriented to time, oriented to person, oriented to place, speech is normal and memory intact Results Labs Result diagrams: 10/15/20 05:12 10/15/20 05:11 Labs: Abnormal lab results 10/14/20 10/15/20 10/15/20 Range/Units 11:11 05:11 05:12 WBC 18.1 H (4.5-11.0) K/mcL RDW 15.9 H (11.5-14.5) % Neut % (Auto) 91.8 H (38.0-78.0) % Lymph % (Auto) 4.7 L (15.0-49.0) % Lymph # (Auto) 0.86 L (1.50-4.80) K/mcL Absolute Neutrophils 16.63 H (1.80-8.00) K/mcL Calcium 7.9 L (8.6-10.4) mg/dL Phosphorus 1.6 L (2.5-4.5) mg/dL Alkaline Phosphatase 128 H (39-117) U/L Lactate Dehydrogenase 243 H (135-225) U/L Total Protein 5.3 L (5.9-8.4) gm/dL Albumin 2.6 L (3.2-5.2) gm/dL Procalcitonin 1.97 H (<0.10) ng/mL Diabetes panel 10/15/20 Range/Units 05:11 Sodium 138 (133-145) mmol/L Potassium 3.3 (3.3-5.1) mmol/L Chloride 102 (96-108) mmol/L Carbon Dioxide 27 (22-30) mmol/L BUN 9 (8-23) mg/dL Creatinine 0.6 (0.6-1.1) mg/dL Glucose 72 (70-105) mg/dL Calcium 7.9 L (8.6-10.4) mg/dL AST 21 (<32) U/L ALT 11 (<40) U/L Alkaline Phosphatase 128 H (39-117) U/L Total Protein 5.3 L (5.9-8.4) gm/dL Albumin 2.6 L (3.2-5.2) gm/dL Triglycerides 78 (<150) mg/dL Calcium panel 10/15/20 Range/Units 05:11 Calcium 7.9 L (8.6-10.4) mg/dL Phosphorus 1.6 L (2.5-4.5) mg/dL Albumin 2.6 L (3.2-5.2) gm/dL Pituitary panel 10/15/20 Range/Units 05:11 Sodium 138 (133-145) mmol/L Potassium 3.3 (3.3-5.1) mmol/L Chloride 102 (96-108) mmol/L Carbon Dioxide 27 (22-30) mmol/L BUN 9 (8-23) mg/dL Creatinine 0.6 (0.6-1.1) mg/dL Glucose 72 (70-105) mg/dL Calcium 7.9 L (8.6-10.4) mg/dL Adrenal panel 10/15/20 Range/Units 05:11 Sodium 138 (133-145) mmol/L Potassium 3.3 (3.3-5.1) mmol/L Chloride 102 (96-108) mmol/L Carbon Dioxide 27 (22-30) mmol/L BUN 9 (8-23) mg/dL Creatinine 0.6 (0.6-1.1) mg/dL Glucose 72 (70-105) mg/dL Calcium 7.9 L (8.6-10.4) mg/dL Total Bilirubin 0.4 (0.1-1.0) mg/dL AST 21 (<32) U/L ALT 11 (<40) U/L Alkaline Phosphatase 128 H (39-117) U/L Total Protein 5.3 L (5.9-8.4) gm/dL Albumin 2.6 L (3.2-5.2) gm/dL All other labs normal. A/P Narrative A/P Narrative: This is a pleasant 75-year-old female who presents with sepsis of unknown cause. No obvious abscess in her previously known nonhealing wound at this time. Awaiting results of pelvic MRI to rule out osteomyelitis. I will continue to follow along with you. Thank you very much for this consultation. Time Spent With Patient Time: Total time spent is greater than 50% in coordination of care (as documented) at patient's floor/unit and/or counseling patient:
[2020-10-15] MEDS: SENNOSIDES/DOCUSATE SODIUM 1 TAB TABLET PO SCH (20:18)
[2020-10-15] MEDS: METOPROLOL TARTRATE 25 MG TABLET PO SCH (20:23)
--- NOTE | 2020-10-16 06:01 | Magnetic Resonance Report ---
CLINICAL INFORMATION: Pressure ulcers over the inferior right buttock and upper posterior thigh. Prior debridement. Evaluate for subcutaneous abscess. COMPARISON: Abdomen and pelvic CT 10/26/2012 TECHNIQUE: Axial T1 and T1 post Magnevist, T2, coronal T1 and T1 post Magnevist fat saturation STIR and sagittal T1 post Magnevist images were acquired. FINDINGS: A skin marker was placed over the cutaneous ulcer in the lower right buttock and upper thigh region. A 15 mm subcutaneous ulceration is seen in this region, but no evidence of abscess or sinus tract. Muscle and fascial planes of the pelvis are unremarkable. Urinary bladder is unremarkable. Anteflexed uterus is normal postmenopausal size. A small/moderate amount of free fluid is seen in the deep true pelvis region. There is mild mucosal enhancement of the rectosigmoid colon. The remainder of the visualized colon and small bowel are normal. No marrow signal abnormality. Mild degenerative change present in the SI and hip joints. IMPRESSION: 1. 15 mm subcutaneous ulcer in the lower right buttock region. No evidence of underlying abscess or sinus tract. 2. Small amount of free fluid in the deep true pelvis which is pathologic in a postmenopausal woman. Etiology is uncertain. There is mild mucosal enhancement of the rectosigmoid colon which could indicate colitis. Consider abdomen and pelvic CT for more comprehensive evaluation. Interpreted and Authenticated by: Jameson Nguyen 10/16/20
--- NOTE | 2020-10-16 06:30 | XRay Report ---
CLINICAL INFORMATION: sob COMPARISON: 10/14/2020 FINDINGS: Heart size, mediastinum and pulmonary vessels are normal. Mild elevation right diaphragm seen as are. Left basilar infiltrate has cleared. IMPRESSION: Interval clearance left basilar infiltrate. No acute disease Interpreted and Authenticated by: Jameson Nguyen 10/16/20
[2020-10-16] MEDS: 0.9 % SODIUM CHLORIDE 10 ML SYRINGE IV SCH ×3 (06:45→20:08)
[2020-10-16] MEDS: 0.9 % SODIUM CHLORIDE 1,000 ML IV SCH ×2 (07:34→19:03)
[2020-10-16] MEDS ORDERED: VANCOMYCIN 750 MG in 0.9 % SODIUM CHLORIDE 250 ML IV SCH (09:00)
[2020-10-16 10:13] LABS: Basophils # (Auto) 0.02 K/mcL (0.00-0.20); Basophils % (Auto) 0.1 % (0.0-2.0); Eosinophils # (Auto) 0.02 K/mcL (0.00-0.70); Eosinophils % (Auto) 0.1 % (0.0-7.0); Hematocrit 40.7 % (36.0-48.0); Lymphocytes # (Auto) 0.72 K/mcL (1.50-4.80); Lymphocytes % (Auto) 5.1 % (15.0-49.0); Mean Cell Volume 90.6 fL (80.0-100.0); Mean Corpuscular HGB Conc 34.4 g/dL (31.0-36.0); Mean Platelet Volume 9.1 fL (7.4-10.4); Monocytes # (Auto) 0.44 K/mcL (0.10-0.90); Monocytes % (Auto) 3.1 % (1.0-12.0); Neutrophils % (Auto) 91.6 % (38.0-78.0); Platelet Count 427 K/mcL (140-440); RBC 4.49 M/mcL (4.00-5.20); Red Cell Distribution Width 15.7 % (11.5-14.5); WBC 14.1 K/mcL (4.5-11.0)
--- NOTE | 2020-10-16 10:15 | Internal Med Progress Note ---
SUBJECTIVE Subjective Patient information: Note initiated : 10/16/20 at 10:15 am Service Date, if different from initiated Date: [] Patient: Ana Yee a 75 y/o F admitted on 10/14/20 for Altered Mental Status. Chief Complaint: [] Interval history: History of present illness: Ms. Yee is a 75 year old F with history of hypertension, CAD who presented to the ER along with her daughter Ana after she was noted to be profoundly weak lethargic confused during her MRI. The day prior to presentation patient fell while trying to get to her bed and slid down hurting her forehead. She was taken to [facility] ER where he had a negative CT and underwent suturing of the forehead laceration site. She was referred for an MRI of lower back to evaluate possible osteomyelitis and concerns of wound infection. She has been getting lethargic and fatigued and minimally responsive over the last 24 hours and concern was raised during MRI and she was directed to the ER for evaluation. Initial work-up in the ER was consistent with septic shock with white count 30,000, blood pressure 60s and elevated lactate. Patient was probably started on antibiotics after cultures were drawn along with crystalloids with resultant improvement in systolics. Also potassium was noted to be 2.7 and was started on replacement. Subsequently hospitalist service was consulted. Since evaluation suspected left basilar infiltrate/right gluteal wound infection. At the time of my evaluation patient is accompanied with her daughter. She is minimally responsive. She was able to answer some of the question and participating leading questions to review of systems. She denies chest pain, thunderclap headache, unilateral weakness, diarrhea. She has developed right posterior gluteal wound that has been managed by Dr. Sammy Tavares surgery. 10/15-clinically improving and responding to antibiotics. Blood pressure systolics at goal. Improving endorgan dysfunction. MRI lower back pending. WBC down to 18 from 30 K, lactic acid downtrending, potassium 3.3 on repla cement, phosphorus 1.6 on replacement, pancultures pending 10/16-patient doing better. White count down to 14.1. Lucid alert and respond to commands. Tolerating diet. Tolerating physical therapy. No overnight fever chills or concerns per staff. Ongoing electrolyte replacement. Pelvis MRI subcutaneous ulcer lower buttock without evidence of abscess. colitis noted. Anticipate discharge to care facility in 24 to 40 hours pending clinical improvement. Constitutional Vitals: Vital Signs Temp Pulse Resp BP Pulse Ox 97.1 F 79 18 138/73 98 10/16/20 06:59 10/16/20 06:59 10/16/20 06:59 10/16/20 06:59 10/16/20 06:59 Period Temp Pulse Resp BP Sys/[place]lett Pulse Ox Last 24 Hr 97.1 F-98.9 F 79-109 18-24 105-166/62-91 93-98 Intake and Output 10/15/20 10/16/20 10/16/20 21:59 05:59 13:59 Intake Total 300 Output Total 1 4 2 Balance 299 -4 -2 Weight 44.135 kg alert oriented Nonlabored breathing No anxiety No lymphedema Forehead laceration sutured site stable Intake & Output: Intake & Output 10/15/20 10/16/20 10/16/20 21:59 05:59 13:59 Intake Total 300 Output Total 1 4 2 Balance 299 -4 -2 Weight 44.135 kg Intake: Oral 300 Output: # of times incontinent of urine 1 4 2 Other: Stool Size Small Small Moderate Stool Color Brown Brown Brown Stool Consistency Liquid Soft Soft Liquid Loose # Voids 1 # of times incontinent of 1 1 1 Bowels OBJ DATA Labs CBC & Chem 7: 10/16/20 09:10 10/15/20 05:11 Labs: Abnormal Lab Results 10/16/20 10/15/20 10/15/20 09:10 05:12 05:11 WBC 14.1 H 18.1 H RDW 15.7 H 15.9 H Neut % (Auto) 91.6 H 91.8 H Lymph % (Auto) 5.1 L 4.7 L Lymph # (Auto) 0.72 L 0.86 L Absolute Neutrophils 12.85 H 16.63 H POC Sodium POC Potassium POC Chloride POC Total CO2 POC Glucose Calcium 7.9 L POC WB Ioniz Calcium Phosphorus 1.6 L Alkaline Phosphatase 128 H Lactate Dehydrogenase 243 H Total Protein 5.3 L Albumin 2.6 L Procalcitonin Ur Leukocyte Esterase Urine WBC Urine Bacteria 10/14/20 10/14/20 10/14/20 13:04 11:11 11:11 WBC RDW Neut % (Auto) Lymph % (Auto) Lymph # (Auto) Absolute Neutrophils POC Sodium 132 L POC Potassium 2.7 L* POC Chloride 88 L POC Total CO2 32 H POC Glucose 151 H Calcium POC WB Ioniz Calcium 1.06 L Phosphorus Alkaline Phosphatase Lactate Dehydrogenase Total Protein Albumin Procalcitonin 1.97 H Ur Leukocyte Esterase 25 A Urine WBC 13 H Urine Bacteria Few A 10/14/20 11:11 WBC 29.9 H RDW 15.7 H Neut % (Auto) 94.4 H Lymph % (Auto) 2.7 L Lymph # (Auto) 0.81 L Absolute Neutrophils 28.18 H POC Sodium POC Potassium POC Chloride POC Total CO2 POC Glucose Calcium POC WB Ioniz Calcium Phosphorus Alkaline Phosphatase Lactate Dehydrogenase Total Protein Albumin Procalcitonin Ur Leukocyte Esterase Urine WBC Urine Bacteria Meds: Medications Acetaminophen (Acetaminophen 325 Mg Tablet) 650 mg PO Q4-6HP PRN; Protocol PRN Reason: Per Pain Protocol/Fever > 101 Hydrocodone Bitart/Acetaminophen (Hydrocodone/Apap 10/325mg Tablet) 1 tab PO Q4HP PRN; Protocol PRN Reason: Per Pain Protocol Aspirin (Aspirin 81 Mg Tab.Chew) 81 mg PO DAILY [facility] Bisacodyl (Bisacodyl 10 Mg Supp.Rect) 10 mg UT Q2-3DAYS PRN PRN Reason: Constipation Cefepime HCl (Cefepime 2 Gm Vial) 2 gm IV Q12H [facility] Last Admin: 10/15/20 20:23 Dose: 2 gm Documented by: Docusate Sodium (Docusate Sodium 100 Mg Capsule) 100 mg PO BID [facility] Last Admin: 10/15/20 20:18 Dose: Not Given Documented by: Heparin Sodium (Porcine) (Heparin 5,000 Unit/Ml Vial) 5,000 unit SQ Q12 [facility] Last Admin: 10/15/20 20:23 Dose: 5,000 unit Documented by: Sodium Chloride (Sodium Chloride 0.9%) 250 mls @ 20 mls/hr IV .[id number] [facility] Last Admin: 10/15/20 21:52 Dose: Not Given Documented by: Sodium Chloride (Sodium Chloride 0.9%) 1,000 mls @ 50 mls/hr IV .Q20H [facility] Stop: 10/17/20 02:58 Last Admin: 10/16/20 07:34 Dose: Not Given Documented by: Acetaminophen (Ofirmev) 650 mg in 65 mls @ 130 mls/hr IV Q6HP PRN; Protocol PRN Reason: Per Pain Protocol/Fever > 101 Magnesium Sulfate (Magnesium Sulfate) 2 gm in 50 mls @ 50 mls/hr IV UD PRN PRN Reason: MG = or < 1.7 Potassium Chloride 40 meq/ (Dextrose) 520 mls @ 130 mls/hr IV UD PRN PRN Reason: K+ = or < 3.5 Vancomycin HCl 750 mg/ Sodium (Chloride) 250 mls @ 250 mls/hr IV DAILY [facility] Iron Carb/Multivit/[place]/Folic Acid (Multivit,Ther Iron,Ca,Fa & Min 1 Tablet) 1 tab PO DAILY [facility] Isosorbide Mononitrate (Isosorbide Mononitrate 60 Mg Tab.Xl.24h) 60 mg PO DAILY [facility] Melatonin (Melatonin 3 Mg Tablet) 3 mg PO HSP PRN PRN Reason: Insomnia Metoprolol Tartrate (Metoprolol Tartrate 25 Mg Tablet) 12.5 mg PO BID [facility] Last Admin: 10/15/20 20:23 Dose: 12.5 mg Documented by: Ondansetron HCl (Ondansetron 4 Mg Odt Tablet) 4 mg SL Q4-6HP PRN; Protocol PRN Reason: Nausea And Vomiting Ondansetron HCl (Ondansetron 4 Mg/2 Ml Vial) 4 mg IV Q4-6HP PRN; Protocol PRN Reason: Nausea And Vomiting Polyethylene Glycol (Polyethylene Glycol 3350 17 Gm Packet) 17 gm PO DAILYP PRN PRN Reason: Constipation Potassium Chloride (Potassium Chloride 20 Meq Packet) 40 meq PO DAILYP PRN PRN Reason: K+ < 3.5 Senna/Docusate Sodium (Sennosides/Docusate Sodium 1 Tab Tablet) 1 tab PO HS [facility] Last Admin: 10/15/20 20:18 Dose: Not Given Documented by: Sodium Chloride (0.9 % Sodium Chloride 10 Ml Syringe) 10 ml IV Q8 [facility] Last Admin: 10/16/20 06:45 Dose: Not Given Documented by: Vancomycin HCl (Vancomycin Per Pharmacy) 1 order IV UD [facility]; Protocol A/P Narrative A/P Narrative: * Septic shock- clinically resolved with aggressive crystalloid/antibiotics/management per guidelines. White count down to 14K from 30 * Left lower lobe pneumonia-clinically improving on antibiotic coverage /aspiration precaution * Colitis on imaging. Clinically improving. * Acute change mental status secondary to septic shock endorgan dysfunction. Now back at baseline * Chronic decubiti/right gluteal ulcer with suspicion of underlying abscess or osteomyelitis- surgery Dr. Sammy Tavares recommends outpatient follow-up. No evidence of abscess or sinus. * Low potassium and phosphorus continuing replacement * History of CAD continue aspirin. Restart beta-maggi once septic shock resolves * Anxiety disorder-hold oral medications until septic shock resolves * History of tobacco smoking dependence * Full code * Prophylaxis Heparin PLAN * Nutrition support/wound care * Frequent turning/decubitus precaution * Antibiotic coverage * Pre-existing medical condition management home medications * PT OT nutrition support * Discharge planning likely SNF, case management to coordinate Time Spent With Patient Time: Total time spent is greater than 50% in coordination of care (as documented) at patient's floor/unit and/or counseling patient: QUALITY VTE Deep Vein Thrombosis/Pulmonary Embolism Present on Admission: No
[2020-10-16] MEDS: METOPROLOL TARTRATE 25 MG TABLET PO SCH ×2 (10:34→20:30)
[2020-10-16] MEDS: ISOSORBIDE MONONITRATE 60 MG TAB.XL.24H PO SCH (10:34)
[2020-10-16] MEDS: MULTIVIT,THER IRON,CA,FA & MIN 1 TABLET PO SCH (10:34)
[2020-10-16] MEDS: ASPIRIN 81 MG TAB.CHEW PO SCH (10:34)
[2020-10-16] MEDS: HEPARIN 5,000 UNIT/ML VIAL SQ SCH ×2 (10:35→20:30)
[2020-10-16] MEDS: DOCUSATE SODIUM 100 MG CAPSULE PO SCH ×2 (10:35→20:08)
[2020-10-16] MEDS: CEFEPIME 2 GM VIAL IV SCH (10:35)
[2020-10-16] MEDS: 0.9 % SODIUM CHLORIDE 250 ML IV SCH ×2 (11:04→22:56)
[2020-10-16 11:49] LABS: ALT/SGPT 12 U/L (<40); AST/SGOT 19 U/L (<32); Albumin 2.6 gm/dL (3.2-5.2); Albumin/Globulin Ratio 0.8 (1.0-2.3); Alkaline Phosphatase 133 U/L (39-117); Bilirubin,Direct < 0.2 mg/dL (0-0.3); Bilirubin,Total 0.3 mg/dL (0.1-1.0); Blood Urea Nitrogen 6 mg/dL (8-23); Calcium 8.2 mg/dL (8.6-10.4); Carbon Dioxide 28 mmol/L (22-30); Chloride 99 mmol/L (96-108); Globulin 3.2 gm/dL (2.2-3.7); Glomerular Filtration Rate 88; Glucose 79 mg/dL (70-105); Lactate Dehydrogenase 245 U/L (135-225); Phosphorous 2.3 mg/dL (2.5-4.5); Triglycerides 97 mg/dL (<150); Uric Acid 3.4 mg/dL (2.5-8.0)
[2020-10-16] MEDS: POTASSIUM CHLORIDE 20 MEQ PACKET PO PRN (11:55)
[2020-10-16] MEDS: SENNOSIDES/DOCUSATE SODIUM 1 TAB TABLET PO SCH (20:08)
[2020-10-16] MEDS: VANCOMYCIN ORAL SOL 1,000 MG/10 ML BOTTLE PO SCH (20:31)
[2020-10-16] MEDS ORDERED: VANCOMYCIN 250 MG CAPSULE PO SCH (21:00)
[2020-10-17] MEDS: 0.9 % SODIUM CHLORIDE 1,000 ML IV SCH (00:23)
[2020-10-17] MEDS: 0.9 % SODIUM CHLORIDE 10 ML SYRINGE IV SCH ×3 (05:18→21:00)
[2020-10-17 08:38] LABS: Basophils # (Auto) 0.02 K/mcL (0.00-0.20); Basophils % (Auto) 0.1 % (0.0-2.0); Eosinophils # (Auto) 0 K/mcL (0.00-0.70); Eosinophils % (Auto) 0 % (0.0-7.0); Hematocrit 40.4 % (36.0-48.0); Hemoglobin 13.6 g/dL (12.0-15.0); Lymphocytes # (Auto) 0.69 K/mcL (1.50-4.80); Lymphocytes % (Auto) 4.2 % (15.0-49.0); Mean Cell Volume 92.2 fL (80.0-100.0); Mean Corpuscular HGB Conc 33.7 g/dL (31.0-36.0); Mean Platelet Volume 9.2 fL (7.4-10.4); Monocytes % (Auto) 3.1 % (1.0-12.0); Neutrophils % (Auto) 92.6 % (38.0-78.0); Platelet Count 420 K/mcL (140-440); RBC 4.38 M/mcL (4.00-5.20); Red Cell Distribution Width 15.7 % (11.5-14.5); WBC 16.3 K/mcL (4.5-11.0)
[2020-10-17] MEDS: MULTIVIT,THER IRON,CA,FA & MIN 1 TABLET PO SCH (08:42)
[2020-10-17] MEDS: METOPROLOL TARTRATE 25 MG TABLET PO SCH ×2 (08:42→20:36)
[2020-10-17] MEDS: ISOSORBIDE MONONITRATE 60 MG TAB.XL.24H PO SCH (08:42)
[2020-10-17] MEDS: ASPIRIN 81 MG TAB.CHEW PO SCH (08:42)
[2020-10-17] MEDS: HEPARIN 5,000 UNIT/ML VIAL SQ SCH ×2 (08:42→20:35)
[2020-10-17] MEDS: DOCUSATE SODIUM 100 MG CAPSULE PO SCH ×2 (08:43→20:37)
[2020-10-17] MEDS: VANCOMYCIN ORAL SOL 1,000 MG/10 ML BOTTLE PO SCH ×4 (08:43→20:37)
[2020-10-17 08:58] LABS: ALT/SGPT 13 U/L (<40); AST/SGOT 20 U/L (<32); Albumin 2.6 gm/dL (3.2-5.2); Albumin/Globulin Ratio 0.9 (1.0-2.3); Alkaline Phosphatase 143 U/L (39-117); Bilirubin,Direct < 0.2 mg/dL (0-0.3); Bilirubin,Total 0.4 mg/dL (0.1-1.0); Blood Urea Nitrogen 5 mg/dL (8-23); Calcium 8.4 mg/dL (8.6-10.4); Carbon Dioxide 26 mmol/L (22-30); Chloride 96 mmol/L (96-108); Globulin 2.9 gm/dL (2.2-3.7); Glomerular Filtration Rate 88; Glucose 103 mg/dL (70-105); Lactate Dehydrogenase 307 U/L (135-225); Phosphorous 1.9 mg/dL (2.5-4.5); Triglycerides 92 mg/dL (<150); Uric Acid 2.8 mg/dL (2.5-8.0)
[2020-10-17] MEDS ORDERED: NEUTRA PHOS 1 PACKET PO PRN (10:13)
--- NOTE | 2020-10-17 10:17 | Internal Med Progress Note ---
SUBJECTIVE Subjective Patient information: Note initiated : 10/17/20 at 10:13 am Service Date, if different from initiated Date: [] Patient: Ana Yee a 75 y/o F admitted on 10/14/20 for Altered Mental Status. Chief Complaint: [] Interval history: History of present illness: Ms. Yee is a 75 year old F with history of hypertension, CAD who presented to the ER along with her daughter Ana after she was noted to be profoundly weak lethargic confused during her MRI. The day prior to presentation patient fell while trying to get to her bed and slid down hurting her forehead. She was taken to [facility] ER where he had a negative CT and underwent suturing of the forehead laceration site. She was referred for an MRI of lower back to evaluate possible osteomyelitis and concerns of wound infection. She has been getting lethargic and fatigued and minimally responsive over the last 24 hours and concern was raised during MRI and she was directed to the ER for evaluation. Initial work-up in the ER was consistent with septic shock with white count 30,000, blood pressure 60s and elevated lactate. Patient was probably started on antibiotics after cultures were drawn along with crystalloids with resultant improvement in systolics. Also potassium was noted to be 2.7 and was started on replacement. Subsequently hospitalist service was consulted. Since evaluation suspected left basilar infiltrate/right gluteal wound infection. At the time of my evaluation patient is accompanied with her daughter. She is minimally responsive. She was able to answer some of the question and participating leading questions to review of systems. She denies chest pain, thunderclap headache, unilateral weakness, diarrhea. She has developed right posterior gluteal wound that has been managed by Dr. Sammy Tavares surgery. 10/15-clinically improving and responding to antibiotics. Blood pressure systolics at goal. Improving endorgan dysfunction. MRI lower back pending. WBC down to 18 from 30 K, lactic acid downtrending, potassium 3.3 on repla cement, phosphorus 1.6 on replacement, pancultures pending 10/16-patient doing better. White count down to 14.1. Lucid alert and respond to commands. Tolerating diet. Tolerating physical therapy. No overnight fever chills or concerns per staff. Ongoing electrolyte replacement. Pelvis MRI subcutaneous ulcer lower buttock without evidence of abscess. colitis noted. Anticipate discharge to care facility in 24 to 40 hours pending clinical improvement. 10/17-C. difficile positive. On oral vancomycin. IV antibiotics discontinued. Multiple loose stools. White count 16.3. Sodium down to 131, potassium improved from 2.9-3.5, phosphorus down to 1.9 on replacement. Was not able to tolerate rectal tube. Continue crystalloid support Constitutional Vitals: Vital Signs Temp Pulse Resp BP Pulse Ox 97.7 F 77 16 161/79 95 10/17/20 07:41 10/17/20 07:41 10/17/20 07:52 10/17/20 07:41 10/17/20 07:52 Period Temp Pulse Resp BP Sys/Bartlett Pulse Ox Last 24 Hr 96.4 F-98.4 F 77-89 16-18 130-161/63-79 93-98 Intake and Output 10/16/20 10/17/20 10/17/20 21:59 05:59 13:59 Intake Total 1520 800 Output Total 3 4 2 Balance 1517 796 -2 Weight 42.638 kg resting comfortably Nonlabored breathing No anxiety Minimal abdominal discomfort Intake & Output: Intake & Output 10/16/20 10/17/20 10/17/20 21:59 05:59 13:59 Intake Total 1520 800 Output Total 3 4 2 Balance 1517 796 -2 Weight 42.638 kg Intake: Nourishment/Supplement quantity 100 (ml) IV 1520 Sodium Chloride 0.9% 1,000 ml @ 1000 50 mls/hr IV .Q20H FERNANDEZ Rx#: [id number] Potassium Chloride 40 Meq In 520 Dextrose 5% in Water 500 ml @ 130 mls/hr IV UD PRN Rx#: [id number] Oral 700 Output: # of times incontinent of urine 3 4 2 Other: Meal Dinner Percent of Meal Consumed 25% Urine Appearance Clear Uretheral (Gonzales) Clear Urine Color Pale Uretheral (Gonzales) Pale Urine Odor Normal Uretheral (Gonzales) Normal Stool Size Smear Small Stool Color Yellow Brown Stool Consistency Liquid Liquid Watery Loose # Bowel Movements 1 # of times incontinent of 1 1 Bowels OBJ DATA Labs CBC & Chem 7: 10/17/20 07:57 10/17/20 07:57 Labs: Abnormal Lab Results 10/17/20 10/17/20 10/16/20 07:57 07:57 09:10 WBC 16.3 H RDW 15.7 H Neut % (Auto) 92.6 H Lymph % (Auto) 4.2 L Lymph # (Auto) 0.69 L Absolute Neutrophils 15.12 H POC Sodium Sodium 131 L POC Potassium Potassium 2.9 L* POC Chloride POC Total CO2 BUN 5 L 6 L POC Glucose Calcium 8.4 L 8.2 L POC WB Ioniz Calcium Phosphorus 1.9 L 2.3 L Alkaline Phosphatase 143 H 133 H Lactate Dehydrogenase 307 H 245 H Total Protein 5.5 L 5.8 L Albumin 2.6 L 2.6 L Albumin/Globulin Ratio 0.9 L 0.8 L Procalcitonin Ur Leukocyte Esterase Urine WBC Urine Bacteria 10/16/20 10/15/20 10/15/20 09:10 05:12 05:11 WBC 14.1 H 18.1 H RDW 15.7 H 15.9 H Neut % (Auto) 91.6 H 91.8 H Lymph % (Auto) 5.1 L 4.7 L Lymph # (Auto) 0.72 L 0.86 L Absolute Neutrophils 12.85 H 16.63 H POC Sodium Sodium POC Potassium Potassium POC Chloride POC Total CO2 BUN POC Glucose Calcium 7.9 L POC WB Ioniz Calcium Phosphorus 1.6 L Alkaline Phosphatase 128 H Lactate Dehydrogenase 243 H Total Protein 5.3 L Albumin 2.6 L Albumin/Globulin Ratio Procalcitonin Ur Leukocyte Esterase Urine WBC Urine Bacteria 10/14/20 10/14/20 10/14/20 13:04 11:11 11:11 WBC RDW Neut % (Auto) Lymph % (Auto) Lymph # (Auto) Absolute Neutrophils POC Sodium 132 L Sodium POC Potassium 2.7 L* Potassium POC Chloride 88 L POC Total CO2 32 H BUN POC Glucose 151 H Calcium POC WB Ioniz Calcium 1.06 L Phosphorus Alkaline Phosphatase Lactate Dehydrogenase Total Protein Albumin Albumin/Globulin Ratio Procalcitonin 1.97 H Ur Leukocyte Esterase 25 A Urine WBC 13 H Urine Bacteria Few A 10/14/20 11:11 WBC 29.9 H RDW 15.7 H Neut % (Auto) 94.4 H Lymph % (Auto) 2.7 L Lymph # (Auto) 0.81 L Absolute Neutrophils 28.18 H POC Sodium Sodium POC Potassium Potassium POC Chloride POC Total CO2 BUN POC Glucose Calcium POC WB Ioniz Calcium Phosphorus Alkaline Phosphatase Lactate Dehydrogenase Total Protein Albumin Albumin/Globulin Ratio Procalcitonin Ur Leukocyte Esterase Urine WBC Urine Bacteria Meds: Medications Acetaminophen (Acetaminophen 325 Mg Tablet) 650 mg PO Q4-6HP PRN; Protocol PRN Reason: Per Pain Protocol/Fever > 101 Hydrocodone Bitart/Acetaminophen (Hydrocodone/Apap 10/325mg Tablet) 1 tab PO Q4HP PRN; Protocol PRN Reason: Per Pain Protocol Aspirin (Aspirin 81 Mg Tab.Chew) 81 mg PO DAILY [facility] Last Admin: 10/17/20 08:42 Dose: 81 mg Documented by: Bisacodyl (Bisacodyl 10 Mg Supp.Rect) 10 mg MO Q2-3DAYS PRN PRN Reason: Constipation Docusate Sodium (Docusate Sodium 100 Mg Capsule) 100 mg PO BID [facility] Last Admin: 10/17/20 08:43 Dose: Not Given Documented by: Heparin Sodium (Porcine) (Heparin 5,000 Unit/Ml Vial) 5,000 unit SQ Q12 [facility] Last Admin: 10/17/20 08:42 Dose: 5,000 unit Documented by: Sodium Chloride (Sodium Chloride 0.9%) 250 mls @ 20 mls/hr IV .[id number] [facility] Last Admin: 10/16/20 22:56 Dose: Not Given Documented by: Acetaminophen (Ofirmev) 650 mg in 65 mls @ 130 mls/hr IV Q6HP PRN; Protocol PRN Reason: Per Pain Protocol/Fever > 101 Magnesium Sulfate (Magnesium Sulfate) 2 gm in 50 mls @ 50 mls/hr IV UD PRN PRN Reason: MG = or < 1.7 Potassium Chloride 40 meq/ (Dextrose) 520 mls @ 130 mls/hr IV UD PRN PRN Reason: K+ = or < 3.5 Last Infusion: 10/16/20 18:55 Dose: Infused Documented by: Iron Carb/Multivit/Sun/Folic Acid (Multivit,Ther Iron,Ca,Fa & Min 1 Tablet) 1 tab PO DAILY [facility] Last Admin: 10/17/20 08:42 Dose: 1 tab Documented by: Isosorbide Mononitrate (Isosorbide Mononitrate 60 Mg Tab.Xl.24h) 60 mg PO DAILY [facility] Last Admin: 10/17/20 08:42 Dose: 60 mg Documented by: Melatonin (Melatonin 3 Mg Tablet) 3 mg PO HSP PRN PRN Reason: Insomnia Metoprolol Tartrate (Metoprolol Tartrate 25 Mg Tablet) 12.5 mg PO BID [facility] Last Admin: 10/17/20 08:42 Dose: 12.5 mg Documented by: Ondansetron HCl (Ondansetron 4 Mg Odt Tablet) 4 mg SL Q4-6HP PRN; Protocol PRN Reason: Nausea And Vomiting Ondansetron HCl (Ondansetron 4 Mg/2 Ml Vial) 4 mg IV Q4-6HP PRN; Protocol PRN Reason: Nausea And Vomiting Polyethylene Glycol (Polyethylene Glycol 3350 17 Gm Packet) 17 gm PO DAILYP PRN PRN Reason: Constipation Potassium Chloride (Potassium Chloride 20 Meq Packet) 40 meq PO DAILYP PRN PRN Reason: K+ < 3.5 Last Admin: 10/16/20 11:55 Dose: 40 meq Documented by: Senna/Docusate Sodium (Sennosides/Docusate Sodium 1 Tab Tablet) 1 tab PO HS [facility] Last Admin: 10/16/20 20:08 Dose: Not Given Documented by: Sodium Chloride (0.9 % Sodium Chloride 10 Ml Syringe) 10 ml IV Q8 [facility] Last Admin: 10/17/20 05:18 Dose: Not Given Documented by: Vancomycin HCl (Vancomycin Oral Eve 1,000 Mg/10 Ml Bottle) 250 mg PO QID [facility] Last Admin: 10/17/20 08:43 Dose: 250 mg Documented by: A/P Narrative A/P Narrative: * C. difficile enterocolitis with diarrhea-continue oral vancomycin/crystalloid support * Septic shock- clinically resolved with aggressive crystalloid, white count down from 30->16 * Low potassium and phosphorus on aggressive replacement * Left lower lobe pneumonia-clinically and radiological resolution noted. * Acute change mental status. Resolved * Chronic decubiti/right gluteal ulcer with suspicion of underlying abscess or osteomyelitis- surgery Dr. Sammy Tavares recommends outpatient follow-up. No evidence of abscess or sinus. Ongoing wound care * History of CAD continue aspirin. Restart beta-maggi once septic shock resolves * Anxiety disorder-hold oral medications until septic shock resolves * History of tobacco smoking dependence * Full code * Prophylaxis Heparin PLAN * Oral vancomycin * Nutrition support/wound care * Frequent turning/decubitus precaution * Replace electrolytes as indicated * Pre-existing medical condition management home medications * PT OT nutrition support * Discharge planning likely SNF, case management to coordinate Time Spent With Patient Time: Total time spent is greater than 50% in coordination of care (as documented) at patient's floor/unit and/or counseling patient: QUALITY VTE Deep Vein Thrombosis/Pulmonary Embolism Present on Admission: No
--- NOTE | 2020-10-17 13:35 | Internal Med Progress Note ---
SUBJECTIVE Subjective Patient information: Note initiated : 10/17/20 at 1:30 pm Service Date, if different from initiated Date: [] Patient: Ana Yee a 75 y/o F admitted on 10/14/20 for Altered Mental Status. Chief Complaint: [] Interval history: History of present illness: Ms. Yee is a 75 year old F with history of hypertension, CAD who presented to the ER along with her daughter Ana after she was noted to be profoundly weak lethargic confused during her MRI. The day prior to presentation patient fell while trying to get to her bed and slid down hurting her forehead. She was taken to [facility] ER where he had a negative CT and underwent suturing of the forehead laceration site. She was referred for an MRI of lower back to evaluate possible osteomyelitis and concerns of wound infection. She has been getting lethargic and fatigued and minimally responsive over the last 24 hours and concern was raised during MRI and she was directed to the ER for evaluation. Initial work-up in the ER was consistent with septic shock with white count 30,000, blood pressure 60s and elevated lactate. Patient was probably started on antibiotics after cultures were drawn along with crystalloids with resultant improvement in systolics. Also potassium was noted to be 2.7 and was started on replacement. Subsequently hospitalist service was consulted. Since evaluation suspected left basilar infiltrate/right gluteal wound infection. At the time of my evaluation patient is accompanied with her daughter. She is minimally responsive. She was able to answer some of the question and participating leading questions to review of systems. She denies chest pain, thunderclap headache, unilateral weakness, diarrhea. She has developed right posterior gluteal wound that has been managed by Dr. Sammy Tavares surgery. 10/15-clinically improving and responding to antibiotics. Blood pressure systolics at goal. Improving endorgan dysfunction. MRI lower back pending. WBC down to 18 from 30 K, lactic acid downtrending, potassium 3.3 on replac ement, phosphorus 1.6 on replacement, pancultures pending 10/16-patient doing better. White count down to 14.1. Lucid alert and respond to commands. Tolerating diet. Tolerating physical therapy. No overnight fever chills or concerns per staff. Ongoing electrolyte replacement. Pelvis MRI subcutaneous ulcer lower buttock without evidence of abscess. colitis noted. Anticipate discharge to care facility in 24 to 40 hours pending clinical improvement. 10/17-C. difficile positive. On oral vancomycin. IV antibiotics discontinued. Multiple loose stools. White count 16.3. Sodium down to 131, potassium improved from 2.9-3.5, phosphorus down to 1.9 on replacement. Was not able to tolerate rectal tube. Continue crystalloid support Constitutional Vitals: Vital Signs Temp Pulse Resp BP Pulse Ox 97.6 F 79 18 154/81 95 10/17/20 11:51 10/17/20 11:51 10/17/20 11:51 10/17/20 11:51 10/17/20 11:51 Period Temp Pulse Resp BP Sys/Bartlett Pulse Ox Last 24 Hr 96.4 F-98.0 F 77-86 16-18 141-161/63-81 93-98 Intake and Output 10/16/20 10/17/20 10/17/20 21:59 05:59 13:59 Intake Total 1520 800 Output Total 3 4 2 Balance 1517 796 -2 Weight 42.638 kg Intake & Output: Intake & Output 10/16/20 10/17/20 10/17/20 21:59 05:59 13:59 Intake Total 1520 800 Output Total 3 4 2 Balance 1517 796 -2 Weight 42.638 kg Intake: Nourishment/Supplement quantity 100 (ml) IV 1520 Sodium Chloride 0.9% 1,000 ml @ 1000 50 mls/hr IV .Q20H FERNANDEZ Rx#: [id number] Potassium Chloride 40 Meq In 520 Dextrose 5% in Water 500 ml @ 130 mls/hr IV UD PRN Rx#: [id number] Oral 700 Output: # of times incontinent of urine 3 4 2 Other: Meal Dinner Percent of Meal Consumed 25% Urine Appearance Clear Uretheral (Gonzales) Clear Urine Color Pale Uretheral (Gonzales) Pale Urine Odor Normal Uretheral (Gonzales) Normal Stool Size Smear Small Stool Color Yellow Brown Stool Consistency Liquid Liquid Watery Loose # Bowel Movements 1 # of times incontinent of 1 1 Bowels Exam: General: Alert, Awake, No acute Distress Eyes/N/T: EOMI, Head/Neck: neck supple, CV: RRR, No murmurs, Pulm: Clear b/l, no wheezing/rhonchi/rales Abd: soft, minimal abd discomfort, +BS x4 Ext: no clubbing/cyanosis/edema Neuro: Alert, no focal deficits, moves all extremities, Skin: warm/dry OBJ DATA Labs CBC & Chem 7: 10/17/20 07:57 10/17/20 07:57 Labs: Abnormal Lab Results 10/17/20 10/17/20 10/16/20 07:57 07:57 09:10 WBC 16.3 H RDW 15.7 H Neut % (Auto) 92.6 H Lymph % (Auto) 4.2 L Lymph # (Auto) 0.69 L Absolute Neutrophils 15.12 H Sodium 131 L Potassium 2.9 L* BUN 5 L 6 L Calcium 8.4 L 8.2 L Phosphorus 1.9 L 2.3 L Alkaline Phosphatase 143 H 133 H Lactate Dehydrogenase 307 H 245 H Total Protein 5.5 L 5.8 L Albumin 2.6 L 2.6 L Albumin/Globulin Ratio 0.9 L 0.8 L Procalcitonin Ur Leukocyte Esterase Urine WBC Urine Bacteria 10/16/20 10/15/20 10/15/20 09:10 05:12 05:11 WBC 14.1 H 18.1 H RDW 15.7 H 15.9 H Neut % (Auto) 91.6 H 91.8 H Lymph % (Auto) 5.1 L 4.7 L Lymph # (Auto) 0.72 L 0.86 L Absolute Neutrophils 12.85 H 16.63 H Sodium Potassium BUN Calcium 7.9 L Phosphorus 1.6 L Alkaline Phosphatase 128 H Lactate Dehydrogenase 243 H Total Protein 5.3 L Albumin 2.6 L Albumin/Globulin Ratio Procalcitonin Ur Leukocyte Esterase Urine WBC Urine Bacteria 10/14/20 10/14/20 13:04 11:11 WBC RDW Neut % (Auto) Lymph % (Auto) Lymph # (Auto) Absolute Neutrophils Sodium Potassium BUN Calcium Phosphorus Alkaline Phosphatase Lactate Dehydrogenase Total Protein Albumin Albumin/Globulin Ratio Procalcitonin 1.97 H Ur Leukocyte Esterase 25 A Urine WBC 13 H Urine Bacteria Few A Meds: Medications Acetaminophen (Acetaminophen 325 Mg Tablet) 650 mg PO Q4-6HP PRN; Protocol PRN Reason: Per Pain Protocol/Fever > 101 Hydrocodone Bitart/Acetaminophen (Hydrocodone/Apap 10/325mg Tablet) 1 tab PO Q4HP PRN; Protocol PRN Reason: Per Pain Protocol Aspirin (Aspirin 81 Mg Tab.Chew) 81 mg PO DAILY [facility] Last Admin: 10/17/20 08:42 Dose: 81 mg Documented by: Bisacodyl (Bisacodyl 10 Mg Supp.Rect) 10 mg AR Q2-3DAYS PRN PRN Reason: Constipation Docusate Sodium (Docusate Sodium 100 Mg Capsule) 100 mg PO BID ON [facility] Last Admin: 10/17/20 08:43 Dose: Not Given Documented by: Heparin Sodium (Porcine) (Heparin 5,000 Unit/Ml Vial) 5,000 unit SQ Q12 ON [facility] Last Admin: 10/17/20 08:42 Dose: 5,000 unit Documented by: Sodium Chloride (Sodium Chloride 0.9%) 250 mls @ 20 mls/hr IV .[id number] ON [facility] Last Admin: 10/16/20 22:56 Dose: Not Given Documented by: Acetaminophen (Ofirmev) 650 mg in 65 mls @ 130 mls/hr IV Q6HP PRN; Protocol PRN Reason: Per Pain Protocol/Fever > 101 Magnesium Sulfate (Magnesium Sulfate) 2 gm in 50 mls @ 50 mls/hr IV UD PRN PRN Reason: MG = or < 1.7 Potassium Chloride 40 meq/ (Dextrose) 520 mls @ 130 mls/hr IV UD PRN PRN Reason: K+ = or < 3.5 Last Infusion: 10/16/20 18:55 Dose: Infused Documented by: Iron Carb/Multivit/[place]/Folic Acid (Multivit,Ther Iron,Ca,Fa & Min 1 Tablet) 1 tab PO DAILY [facility] Last Admin: 10/17/20 08:42 Dose: 1 tab Documented by: Isosorbide Mononitrate (Isosorbide Mononitrate 60 Mg Tab.Xl.24h) 60 mg PO DAILY [facility] Last Admin: 10/17/20 08:42 Dose: 60 mg Documented by: Melatonin (Melatonin 3 Mg Tablet) 3 mg PO HSP PRN PRN Reason: Insomnia Metoprolol Tartrate (Metoprolol Tartrate 25 Mg Tablet) 12.5 mg PO BID [facility] Last Admin: 10/17/20 08:42 Dose: 12.5 mg Documented by: Ondansetron HCl (Ondansetron 4 Mg Odt Tablet) 4 mg SL Q4-6HP PRN; Protocol PRN Reason: Nausea And Vomiting Ondansetron HCl (Ondansetron 4 Mg/2 Ml Vial) 4 mg IV Q4-6HP PRN; Protocol PRN Reason: Nausea And Vomiting Polyethylene Glycol (Polyethylene Glycol 3350 17 Gm Packet) 17 gm PO DAILYP PRN PRN Reason: Constipation Potassium Chloride (Potassium Chloride 20 Meq Packet) 40 meq PO DAILYP PRN PRN Reason: K+ < 3.5 Last Admin: 10/16/20 11:55 Dose: 40 meq Documented by: Potassium/Phosphorus/Sodium (Neutra Phos 1 Packet) 2 packet PO ONCE PRN PRN Reason: For phosphorus less than 2.5 Last Admin: 10/17/20 10:49 Dose: 2 packet Documented by: Senna/Docusate Sodium (Sennosides/Docusate Sodium 1 Tab Tablet) 1 tab PO HS [facility] Last Admin: 10/16/20 20:08 Dose: Not Given Documented by: Sodium Chloride (0.9 % Sodium Chloride 10 Ml Syringe) 10 ml IV Q8 [facility] Last Admin: 10/17/20 05:18 Dose: Not Given Documented by: Vancomycin HCl (Vancomycin Oral Eve 1,000 Mg/10 Ml Bottle) 250 mg PO QID [facility] Last Admin: 10/17/20 12:50 Dose: 250 mg Documented by: A/P Narrative A/P Narrative: A: *C. difficile enterocolitis: *Septic shock: clinically resolved with aggressive crystalloid *Low potassium/phosphorus *LLL PNA: clinically and radiological resolution noted *Acute change mental status: Resolved *Chronic decubitic/right gluteal ulcer with suspicion of underlying abscess or osteomyelitis: -surgeon Dr. Sammy Tavares recommends outpatient follow-up. No evidence of abscess or sinus. Ongoing wound care *h/o CAD: continue aspirin. Restart beta-maggi once septic shock resolves *Anxiety disorder: *History of tobacco smoking dependence PLAN: -Oral vancomycin -Nutrition support/wound care -Frequent turning/decubitus precaution -Replace electrolytes as indicated -continue aspirin. Restart beta-maggi once septic shock resolves -restart psych meds when septic shock resolves -PT OT nutrition support -Discharge planning likely SNF, case management to coordinate -Prophylaxis: Heparin Full code Time Spent With Patient Time: Total time spent is greater than 50% in coordination of care (as documented) at patient's floor/unit and/or counseling patient: QUALITY VTE Deep Vein Thrombosis/Pulmonary Embolism Present on Admission: No
[2020-10-17] MEDS: 0.9 % SODIUM CHLORIDE 250 ML IV SCH (13:54)
[2020-10-17] MEDS: SENNOSIDES/DOCUSATE SODIUM 1 TAB TABLET PO SCH (20:37)
[2020-10-18] MEDS: 0.9 % SODIUM CHLORIDE 250 ML IV SCH ×2 (01:03→11:43)
[2020-10-18] MEDS: 0.9 % SODIUM CHLORIDE 10 ML SYRINGE IV SCH ×3 (04:37→20:13)
[2020-10-18] MEDS: METOPROLOL TARTRATE 25 MG TABLET PO SCH ×2 (08:34→20:13)
[2020-10-18] MEDS: ISOSORBIDE MONONITRATE 60 MG TAB.XL.24H PO SCH (08:34)
[2020-10-18] MEDS: HEPARIN 5,000 UNIT/ML VIAL SQ SCH ×2 (08:34→20:12)
[2020-10-18] MEDS: ASPIRIN 81 MG TAB.CHEW PO SCH (08:34)
[2020-10-18] MEDS: DOCUSATE SODIUM 100 MG CAPSULE PO SCH ×2 (08:35→20:12)
[2020-10-18] MEDS: MULTIVIT,THER IRON,CA,FA & MIN 1 TABLET PO SCH (08:35)
--- NOTE | 2020-10-18 08:36 | Internal Med Progress Note ---
SUBJECTIVE Subjective Patient information: Note initiated : 10/18/20 at 8:34 am Service Date, if different from initiated Date: [] Patient: Ana Yee a 75 y/o F admitted on 10/14/20 for Altered Mental Status. Chief Complaint: [] Interval history: History of present illness: Ms. Yee is a 75 year old F with history of hypertension, CAD who presented to the ER along with her daughter Ana after she was noted to be profoundly weak lethargic confused during her MRI. The day prior to presentation patient fell while trying to get to her bed and slid down hurting her forehead. She was taken to [facility] ER where he had a negative CT and underwent suturing of the forehead laceration site. She was referred for an MRI of lower back to evaluate possible osteomyelitis and concerns of wound infection. She has been getting lethargic and fatigued and minimally responsive over the last 24 hours and concern was raised during MRI and she was directed to the ER for evaluation. Initial work-up in the ER was consistent with septic shock with white count 30,000, blood pressure 60s and elevated lactate. Patient was probably started on antibiotics after cultures were drawn along with crystalloids with resultant improvement in systolics. Also potassium was noted to be 2.7 and was started on replacement. Subsequently hospitalist service was consulted. Since evaluation suspected left basilar infiltrate/right gluteal wound infection. At the time of my evaluation patient is accompanied with her daughter. She is minimally responsive. She was able to answer some of the question and participating leading questions to review of systems. She denies chest pain, thunderclap headache, unilateral weakness, diarrhea. She has developed right posterior gluteal wound that has been managed by Dr. Sammy Tavares surgery. 10/15-clinically improving and responding to antibiotics. Blood pressure systolics at goal. Improving endorgan dysfunction. MRI lower back pending. WBC down to 18 from 30 K, lactic acid downtrending, potassium 3.3 on replac ement, phosphorus 1.6 on replacement, pancultures pending 10/16-patient doing better. White count down to 14.1. Lucid alert and respond to commands. Tolerating diet. Tolerating physical therapy. No overnight fever chills or concerns per staff. Ongoing electrolyte replacement. Pelvis MRI subcutaneous ulcer lower buttock without evidence of abscess. colitis noted. Anticipate discharge to care facility in 24 to 40 hours pending clinical improvement. 10/17-C. difficile positive. On oral vancomycin. IV antibiotics discontinued. Multiple loose stools. White count 16.3. Sodium down to 131, potassium improved from 2.9-3.5, phosphorus down to 1.9 on replacement. Was not able to tolerate rectal tube. Continue crystalloid support 10/18 Patient's bowel movement frequency is significantly decreased. No overnight event or new complaints. Unable to gather review of systems given significant hearing impairment Constitutional Vitals: Vital Signs Temp Pulse Resp BP Pulse Ox 98 F 97 H 14 138/59 95 10/18/20 08:00 10/18/20 08:00 10/18/20 08:00 10/18/20 08:00 10/18/20 08:00 Period Temp Pulse Resp BP Sys/Bartlett Pulse Ox Last 24 Hr 97.4 F-98 F 78-98 14-18 138-160/59-81 93-98 Intake and Output 10/17/20 10/18/20 10/18/20 21:59 05:59 13:59 Intake Total 1200 500 0 Output Total 750 800 Balance 450 -300 0 Intake & Output: Intake & Output 10/17/20 10/18/20 10/18/20 21:59 05:59 13:59 Intake Total 1200 500 0 Output Total 750 800 Balance 450 -300 0 Intake: IV 1000 Sodium Chloride 0.9% 1,000 ml @ 1000 50 mls/hr IV .Q20H [facility] Rx#: [id number] Oral 200 500 0 Output: Urine Catheter Amount 750 800 Other: Meal Dinner Percent of Meal Consumed 50% Feeding Ability Assist with Tray Set Up Urine Appearance Clear Clear Clear Uretheral (Gonzales) Clear Clear Urine Color Pale Pale Pale Uretheral (Gonzales) Pale Straw Urine Odor Normal Uretheral (Gonzales) Normal Stool Consistency Liquid Watery Loose Exam: General: Alert, Awake, No acute Distress Eyes/N/T: EOMI, Head/Neck: neck supple, CV: RRR, No murmurs, Pulm: Clear b/l, no wheezing/rhonchi/rales Abd: soft, minimal abd discomfort, +BS x4 Ext: no clubbing/cyanosis/edema Neuro: Alert, no focal deficits, moves all extremities, Skin: warm/dry OBJ DATA Labs CBC & Chem 7: 10/17/20 07:57 10/17/20 07:57 Labs: Abnormal Lab Results 10/17/20 10/17/20 10/16/20 07:57 07:57 09:10 WBC 16.3 H RDW 15.7 H Neut % (Auto) 92.6 H Lymph % (Auto) 4.2 L Lymph # (Auto) 0.69 L Absolute Neutrophils 15.12 H Sodium 131 L Potassium 2.9 L* BUN 5 L 6 L Calcium 8.4 L 8.2 L Phosphorus 1.9 L 2.3 L Alkaline Phosphatase 143 H 133 H Lactate Dehydrogenase 307 H 245 H Total Protein 5.5 L 5.8 L Albumin 2.6 L 2.6 L Albumin/Globulin Ratio 0.9 L 0.8 L 10/16/20 09:10 WBC 14.1 H RDW 15.7 H Neut % (Auto) 91.6 H Lymph % (Auto) 5.1 L Lymph # (Auto) 0.72 L Absolute Neutrophils 12.85 H Sodium Potassium BUN Calcium Phosphorus Alkaline Phosphatase Lactate Dehydrogenase Total Protein Albumin Albumin/Globulin Ratio Meds: Medications Acetaminophen (Acetaminophen 325 Mg Tablet) 650 mg PO Q4-6HP PRN; Protocol PRN Reason: Per Pain Protocol/Fever > 101 Hydrocodone Bitart/Acetaminophen (Hydrocodone/Apap 10/325mg Tablet) 1 tab PO Q4HP PRN; Protocol PRN Reason: Per Pain Protocol Aspirin (Aspirin 81 Mg Tab.Chew) 81 mg PO DAILY [facility] Last Admin: 10/17/20 08:42 Dose: 81 mg Documented by: Bisacodyl (Bisacodyl 10 Mg Supp.Rect) 10 mg NH Q2-3DAYS PRN PRN Reason: Constipation Docusate Sodium (Docusate Sodium 100 Mg Capsule) 100 mg PO BID [facility] Last Admin: 10/17/20 20:37 Dose: Not Given Documented by: Heparin Sodium (Porcine) (Heparin 5,000 Unit/Ml Vial) 5,000 unit SQ Q12 [facility] Last Admin: 10/17/20 20:35 Dose: 5,000 unit Documented by: Sodium Chloride (Sodium Chloride 0.9%) 250 mls @ 20 mls/hr IV .[id number] [facility] Last Admin: 10/18/20 01:03 Dose: Not Given Documented by: Acetaminophen (Ofirmev) 650 mg in 65 mls @ 130 mls/hr IV Q6HP PRN; Protocol PRN Reason: Per Pain Protocol/Fever > 101 Magnesium Sulfate (Magnesium Sulfate) 2 gm in 50 mls @ 50 mls/hr IV UD PRN PRN Reason: MG = or < 1.7 Potassium Chloride 40 meq/ (Dextrose) 520 mls @ 130 mls/hr IV UD PRN PRN Reason: K+ = or < 3.5 Last Infusion: 10/16/20 18:55 Dose: Infused Documented by: Iron Carb/Multivit/Food Production Associate/Folic Acid (Multivit,Ther Iron,Ca,Fa & Min 1 Tablet) 1 tab PO DAILY [facility] Last Admin: 10/17/20 08:42 Dose: 1 tab Documented by: Isosorbide Mononitrate (Isosorbide Mononitrate 60 Mg Tab.Xl.24h) 60 mg PO DAILY [facility] Last Admin: 10/17/20 08:42 Dose: 60 mg Documented by: Melatonin (Melatonin 3 Mg Tablet) 3 mg PO HSP PRN PRN Reason: Insomnia Metoprolol Tartrate (Metoprolol Tartrate 25 Mg Tablet) 12.5 mg PO BID [facility] Last Admin: 10/17/20 20:36 Dose: 12.5 mg Documented by: Ondansetron HCl (Ondansetron 4 Mg Odt Tablet) 4 mg SL Q4-6HP PRN; Protocol PRN Reason: Nausea And Vomiting Ondansetron HCl (Ondansetron 4 Mg/2 Ml Vial) 4 mg IV Q4-6HP PRN; Protocol PRN Reason: Nausea And Vomiting Polyethylene Glycol (Polyethylene Glycol 3350 17 Gm Packet) 17 gm PO DAILYP PRN PRN Reason: Constipation Potassium Chloride (Potassium Chloride 20 Meq Packet) 40 meq PO DAILYP PRN PRN Reason: K+ < 3.5 Last Admin: 10/16/20 11:55 Dose: 40 meq Documented by: Potassium/Phosphorus/Sodium (Neutra Phos 1 Packet) 2 packet PO ONCE PRN PRN Reason: For phosphorus less than 2.5 Last Admin: 10/17/20 10:49 Dose: 2 packet Documented by: Senna/Docusate Sodium (Sennosides/Docusate Sodium 1 Tab Tablet) 1 tab PO HS [facility] Last Admin: 10/17/20 20:37 Dose: Not Given Documented by: Sodium Chloride (0.9 % Sodium Chloride 10 Ml Syringe) 10 ml IV Q8 [facility] Last Admin: 10/18/20 04:37 Dose: 10 ml Documented by: Vancomycin HCl (Vancomycin Oral Eve 1,000 Mg/10 Ml Bottle) 250 mg PO QID [facility] Last Admin: 10/17/20 20:37 Dose: 250 mg Documented by: A/P Narrative A/P Narrative: A: *C. difficile enterocolitis: *Septic shock: resolved *Low potassium/phosphorus *LLL PNA: clinically and radiological resolution noted *Acute change mental status: Resolved *Chronic decubitis/right gluteal ulcer: no abscess/osteomyelitis: -surgeon Dr. Sammy Tavares recommends outpatient follow-up. No evidence of ab scess or sinus. Ongoing wound care *h/o CAD: continue aspirin. Restart beta-maggi once septic shock resolves *Anxiety disorder: *h/o COPD: cont home IH's *History of tobacco smoking dependence *Severe hearing impairment PLAN: -Oral vancomycin -Nutrition support/wound care -Frequent turning/decubitus precaution -Replace electrolytes as indicated -continue aspirin. Restarted BB/ccb -PT OT nutrition support -f/u with wound care -Discharge planning likely SNF, case management to coordinate -Prophylaxis: Heparin Time Spent With Patient Time: Total time spent is greater than 50% in coordination of care (as kin carito) at patient's floor/unit and/or counseling patient: QUALITY VTE Deep Vein Thrombosis/Pulmonary Embolism Present on Admission: No
[2020-10-18] MEDS: Umeclidinium [Incruse Ellipta] 62.5 mcg/actuation Inhaler INH SCH (08:50)
[2020-10-18] MEDS: amLODIPine 10 MG TABLET PO SCH (10:15)
[2020-10-18] MEDS: VANCOMYCIN ORAL SOL 1,000 MG/10 ML BOTTLE PO SCH ×4 (10:15→20:13)
[2020-10-18 10:42] LABS: Basophils # (Auto) 0.02 K/mcL (0.00-0.20); Basophils % (Auto) 0.1 % (0.0-2.0); Eosinophils # (Auto) 0.01 K/mcL (0.00-0.70); Eosinophils % (Auto) 0.1 % (0.0-7.0); Hematocrit 41.3 % (36.0-48.0); Lymphocytes # (Auto) 1.03 K/mcL (1.50-4.80); Lymphocytes % (Auto) 7.3 % (15.0-49.0); Mean Corpuscular HGB Conc 33.9 g/dL (31.0-36.0); Mean Platelet Volume 9.2 fL (7.4-10.4); Monocytes # (Auto) 0.65 K/mcL (0.10-0.90); Monocytes % (Auto) 4.6 % (1.0-12.0); Neutrophils % (Auto) 87.9 % (38.0-78.0); Platelet Count 430 K/mcL (140-440); RBC 4.49 M/mcL (4.00-5.20); Red Cell Distribution Width 15.4 % (11.5-14.5); WBC 14.1 K/mcL (4.5-11.0)
[2020-10-18 11:32] LABS: ALT/SGPT 11 U/L (<40); AST/SGOT 19 U/L (<32); Albumin 2.4 gm/dL (3.2-5.2); Albumin/Globulin Ratio 0.8 (1.0-2.3); Alkaline Phosphatase 126 U/L (39-117); Bilirubin,Direct < 0.2 mg/dL (0-0.3); Bilirubin,Total 0.3 mg/dL (0.1-1.0); Blood Urea Nitrogen 7 mg/dL (8-23); Calcium 8.5 mg/dL (8.6-10.4); Carbon Dioxide 26 mmol/L (22-30); Chloride 95 mmol/L (96-108); Glomerular Filtration Rate 84; Glucose 103 mg/dL (70-105); Lactate Dehydrogenase 297 U/L (135-225); Phosphorous 2.5 mg/dL (2.5-4.5); Triglycerides 82 mg/dL (<150); Uric Acid 3.3 mg/dL (2.5-8.0)
[2020-10-18] MEDS: POTASSIUM CHLORIDE 20 MEQ PACKET PO PRN (12:08)
[2020-10-18] MEDS: POTASSIUM CHLORIDE 20 MEQ TABLET PO SCH ×2 (12:13→16:53)
--- NOTE | 2020-10-18 13:07 | Discharge Summary ---
Discharge Provider Provider Patient information: Note initiated : 10/18/20 at 1:06 pm Service Date, if different from initiated Date: [] Patient: Ana Yee 75 y/o F admitted on 10/14/20 for Altered Mental Status. Chief Complaint: [] Date of admission: 10/14/20 14:42 Discharge date: 10/20/20 Primary care physician: Unknown Unknown Consults: 10/14/20 12:40 Consult to Physician [CONS] Stat Comment: Consulting Provider: Wayne Casas Reason For Exam: Physician to Consult 10/15/20 10:47 Consult to Physician [CONS] Routine Comment: Consulting Provider: Sammy Tavares Reason For Exam: Physician to Consult Discharge Meds Discharge Medications Home Medications HYDROcodone/APAP 10/325MG 1 tab PO Q4HP PRN 11/23/14 [History Confirmed 10/14/20 Last Taken 10/14/20 09:00] aspirin 81 mg PO DAILY 11/23/14 [History Confirmed 10/14/20 Last Taken 10/14/20] isosorbide mononitrate 60 mg PO DAILY 11/23/14 [History Confirmed 10/14/20 Last Taken 10/14/20] amlodipine 10 mg tablet 10 mg PO QDAY 09/25/20 [History Confirmed 10/14/20 Last Taken 10/14/20] cholecalciferol (vitamin D3) 100 mcg (4,000 unit) tablet 100 mcg PO QDAY 09/25/20 [History Confirmed 10/14/20 Last Taken 10/14/20] losartan 25 mg tablet 25 mg PO QDAY 09/25/20 [History Confirmed 10/14/20 Last Taken 10/14/20] Incruse Ellipta 1 inh INHALATION Q24H 10/14/20 [History Confirmed 10/14/20 Last Taken Unknown] naproxen sodium 220 mg PO BID 10/14/20 [History Confirmed 10/14/20 Last Taken 10/14/20] metoprolol tartrate 12.5 mg PO BID 10/15/20 [History Confirmed 10/15/20 Last Taken 10/14/20] vancomycin 250 mg PO QID #28 ea 10/18/20 [Rx Last Taken Unknown] COURSE Hospital Course Hospital course: Interval history: History of present illness: Ms. Yee is a 75 year old F with history of hypertension, CAD who presented to the ER along with her daughter Ana after she was noted to be profoundly weak lethargic confused during her MRI. The day prior to presentation patient fell while trying to get to her bed and slid down hurting her forehead. She was taken to [facility] ER where he had a negative CT and underwent suturing of the forehead laceration site. She was referred for an MRI of lower back to evaluate possible osteomyelitis and concerns of wound infection. She has been getting lethargic and fatigued and minimally responsive over the last 24 hours and concern was raised during MRI and she was directed to the ER for evaluation. Initial work- up in the ER was consistent with septic shock with white count 30,000, blood pressure 60s and elevated lactate. Patient was probably started on antibiotics after cultures were drawn along with crystalloids with resultant improvement in systolics. Also potassium was noted to be 2.7 and was started on replacement. Subsequently hospitalist service was consulted. Since evaluation suspected left basilar infiltrate/right gluteal wound infection. At the time of my evaluation patient is accompanied with her daughter. She is minimally responsive. She was able to answer some of the question and participating leading questions to review of systems. She denies chest pain, thunderclap headache, unilateral weakness, diarrhea. She has developed right posterior gluteal wound that has been managed by Dr. Sammy Tavares surgery. 10/15-clinically improving and responding to antibiotics. Blood pressure systol ics at goal. Improving endorgan dysfunction. MRI lower back pending. WBC down to 18 from 30 K, lactic acid downtrending, potassium 3.3 on replacement, phosphorus 1.6 on replacement, pancultures pending 10/16-patient doing better. White count down to 14.1. Lucid alert and respond to commands. Tolerating diet. Tolerating physical therapy. No overnight fever chills or concerns per staff. Ongoing electrolyte replacement. Pelvis MRI subcutaneous ulcer lower buttock without evidence of abscess. colitis noted. Anticipate discharge to care facility in 24 to 40 hours pending clinical impro vement. 10/17-C. difficile positive. On oral vancomycin. IV antibiotics discontinued. Multiple loose stools. White count 16.3. Sodium down to 131, potassium improved from 2.9-3.5, phosphorus down to 1.9 on replacement. Was not able to tolerate rectal tube. Continue crystalloid support 10/18 Patient's bowel movement frequency is significantly decreased. No overnight event or new complaints. 10/19 No diarrhea overnight or yesterday. No new pains or complaints. 10/20 No changes. Placement to [facility] facility A: *C. difficile enterocolitis: *Septic shock: resolved *Low potassium/phosphorus *LLL PNA: clinically and radiological resolution noted *Acute change mental status: Resolved *Chronic decubitis/right gluteal ulcer: no abscess/osteomyelitis: -surgeon Dr. Sammy Tavares recommends outpatient follow-up. No evidence of abscess or sinus. Ongoing wound care *h/o CAD: continue aspirin. Restart beta-maggi once septic shock resolves *Anxiety disorder: *h/o COPD: cont home IH's *History of tobacco smoking dependence *Severe hearing impairment Discharge diagnosis: C. difficile colitis septic shock electrolyte abnormalities pneumonia Secondary discharge diagnosis: AMS resolved chronic decubitus ulcer CAD anxiety COPD tobacco abuse severe hearing impairment Time Spent with Patient Time attestation: Total time spent providing and/or coordinating discharge services: EXAM Constitutional Vitals: Temp Pulse Resp BP Pulse Ox 97.8 F 93 H 18 140/63 94 10/18/20 11:49 10/18/20 11:49 10/18/20 11:49 10/18/20 11:49 10/18/20 11:49 Discharge Data Data Completed and Pending Labs on day of discharge: Labs from last 24 hours 10/18/20 10/18/20 09:50 09:50 WBC 14.1 H RBC 4.49 Hgb 14.0 Hct 41.3 MCV 92.0 MCH 31.2 MCHC 33.9 RDW 15.4 H Plt Count 430 MPV 9.2 Neut % (Auto) 87.9 H Lymph % (Auto) 7.3 L [place] % (Auto) 4.6 Eos % (Auto) 0.1 Baso % (Auto) 0.1 Lymph # (Auto) 1.03 L [place] # (Auto) 0.65 Eos # (Auto) 0.01 Baso # (Auto) 0.02 Absolute Neutrophils 12.42 H Sodium 133 Potassium 3.0 L Chloride 95 L Carbon Dioxide 26 Anion Gap 12.0 BUN 7 L Creatinine 0.7 GFR Calculation 84 Glucose 103 Uric Acid 3.3 Calcium 8.5 L Phosphorus 2.5 Magnesium 1.8 Total Bilirubin 0.3 Direct Bilirubin < 0.2 GGT 20 AST 19 ALT 11 Alkaline Phosphatase 126 H Lactate Dehydrogenase 297 H Total Protein 5.4 L Albumin 2.4 L Globulin 3.0 Albumin/Globulin Ratio 0.8 L Triglycerides 82 Preliminary micro results at discharge 10/14/20 14:10 Blood Culture - Preliminary Blood 10/14/20 13:29 Blood Culture - Preliminary Blood Discharge Plan Patient/Caregiver Discharge Instructions Activity: increase activity as tolerated Diet: Cardiac Activity Restrictions/Additional Instructions: Follow-up with PCP in 3 to 7 days Prescriptions: New vancomycin 1,000 mg Recon Soln 250 mg PO QID Qty: 28 RF: 0 Continued amlodipine 10 mg tablet 10 mg PO QDAY RF: 0 cholecalciferol (vitamin D3) 100 mcg (4,000 unit) tablet 100 mcg PO QDAY RF: 0 losartan 25 mg tablet 25 mg PO QDAY RF: 0 aspirin 81 MG tablet,delayed release (DR/EC) 81 mg PO DAILY RF: 0 isosorbide mononitrate 60 MG tablet extended release 24 hr 60 mg PO DAILY RF: 0 HYDROcodone/APAP 10/325MG tablet 1 tab PO Q4HP PRN (Reason: Pain) RF: 0 naproxen sodium 220 mg Capsule 220 mg PO BID RF: 0 Incruse Ellipta 62.5 mcg/actuation Blister With Device 1 inh INHALATION Q24H RF: 0 metoprolol tartrate 25 mg Tablet 12.5 mg PO BID RF: 0 Follow Up Plan Follow up with: Last Mendez MD [Physician] - (buttock wound) Patient Disposition: Xfer SNF Prognosis: Fair Rehab Potential: Fair I certify that the patient requires SNF services: Yes Overall status at discharge: patient is progressing back to baseline QUALITY VTE Deep Vein Thrombosis/Pulmonary Embolism Present on Admission: No
[2020-10-18] MEDS: SENNOSIDES/DOCUSATE SODIUM 1 TAB TABLET PO SCH (20:12)
[2020-10-19] MEDS: 0.9 % SODIUM CHLORIDE 250 ML IV SCH ×3 (02:09→23:57)
[2020-10-19] MEDS: 0.9 % SODIUM CHLORIDE 10 ML SYRINGE IV SCH ×3 (04:15→20:49)
[2020-10-19 07:02] LABS: Basophils # (Auto) 0.02 K/mcL (0.00-0.20); Basophils % (Auto) 0.1 % (0.0-2.0); Eosinophils # (Auto) 0.07 K/mcL (0.00-0.70); Eosinophils % (Auto) 0.5 % (0.0-7.0); Hematocrit 39.8 % (36.0-48.0); Hemoglobin 13.6 g/dL (12.0-15.0); Mean Cell Volume 91.9 fL (80.0-100.0); Mean Corpuscular HGB Conc 34.2 g/dL (31.0-36.0); Mean Platelet Volume 9.5 fL (7.4-10.4); Monocytes % (Auto) 6.2 % (1.0-12.0); Neutrophils % (Auto) 84.2 % (38.0-78.0); Platelet Count 426 K/mcL (140-440); RBC 4.33 M/mcL (4.00-5.20); Red Cell Distribution Width 15.2 % (11.5-14.5); WBC 14.5 K/mcL (4.5-11.0)
--- NOTE | 2020-10-19 08:02 | Internal Med Progress Note ---
SUBJECTIVE Subjective Patient information: Note initiated : 10/19/20 at 8:01 am Service Date, if different from initiated Date: [] Patient: Ana Yee a 75 y/o F admitted on 10/14/20 for Altered Mental Status. Chief Complaint: [] Interval history: History of present illness: Ms. Yee is a 75 year old F with history of hypertension, CAD who presented to the ER along with her daughter Ana after she was noted to be profoundly weak lethargic confused during her MRI. The day prior to presentation patient fell while trying to get to her bed and slid down hurting her forehead. She was taken to [facility] ER where he had a negative CT and underwent suturing of the forehead laceration site. She was referred for an MRI of lower back to evaluate possible osteomyelitis and concerns of wound infection. She has been getting lethargic and fatigued and minimally responsive over the last 24 hours and concern was raised during MRI and she was directed to the ER for evaluation. Initial work-up in the ER was consistent with septic shock with white count 30,000, blood pressure 60s and elevated lactate. Patient was probably started on antibiotics after cultures were drawn along with crystalloids with resultant improvement in systolics. Also potassium was noted to be 2.7 and was started on replacement. Subsequently hospitalist service was consulted. Since evaluation suspected left basilar infiltrate/right gluteal wound infection. At the time of my evaluation patient is accompanied with her daughter. She is minimally responsive. She was able to answer some of the question and participating leading questions to review of systems. She denies chest pain, thunderclap headache, unilateral weakness, diarrhea. She has developed right posterior gluteal wound that has been managed by Dr. Sammy Tavares surgery. 10/15-clinically improving and responding to antibiotics. Blood pressure systolics at goal. Improving endorgan dysfunction. MRI lower back pending. WBC down to 18 from 30 K, lactic acid downtrending, potassium 3.3 on replac ement, phosphorus 1.6 on replacement, pancultures pending 10/16-patient doing better. White count down to 14.1. Lucid alert and respond to commands. Tolerating diet. Tolerating physical therapy. No overnight fever chills or concerns per staff. Ongoing electrolyte replacement. Pelvis MRI subcutaneous ulcer lower buttock without evidence of abscess. colitis noted. Anticipate discharge to care facility in 24 to 40 hours pending clinical improvement. 10/17-C. difficile positive. On oral vancomycin. IV antibiotics discontinued. Multiple loose stools. White count 16.3. Sodium down to 131, potassium improved from 2.9-3.5, phosphorus down to 1.9 on replacement. Was not able to tolerate rectal tube. Continue crystalloid support 10/18 Patient's bowel movement frequency is significantly decreased. No overnight event or new complaints. 10/19 No diarrhea overnight or yesterday. No new pains or complaints. Unable to gather review of systems given significant hearing impairment Constitutional Vitals: Vital Signs Temp Pulse Resp BP Pulse Ox 98 F 74 16 129/59 96 10/19/20 07:48 10/19/20 07:48 10/19/20 07:48 10/19/20 07:48 10/19/20 07:48 Period Temp Pulse Resp BP Sys/Bartlett Pulse Ox Last 24 Hr 97.1 F-98.2 F 73-96 16-18 129-152/52-74 94-96 Intake and Output 10/18/20 10/19/20 10/19/20 21:59 05:59 13:59 Intake Total 240 200 Output Total 600 1100 Balance -360 -900 Weight 42.638 kg Intake & Output: Intake & Output 10/18/20 10/19/20 10/19/20 21:59 05:59 13:59 Intake Total 240 200 Output Total 600 1100 Balance -360 -900 Weight 42.638 kg Intake: Oral 240 200 Output: Urine Catheter Amount 600 1100 Other: Urine Appearance Clear Clear Uretheral (Gonzales) Clear Clear Urine Color Pale Pale Uretheral (Gonzales) Pale Pale Urine Odor Uretheral (Gonzales) Normal # Bowel Movements 0 Exam: General: Alert, Awake, No acute Distress Eyes/N/T: EOMI, Head/Neck: neck supple, CV: RRR, No murmurs, Pulm: Clear b/l, no wheezing/rhonchi/rales Abd: soft, minimal abd discomfort, +BS x4 Ext: no clubbing/cyanosis/edema Neuro: Alert, no focal deficits, moves all extremities, Skin: warm/dry OBJ DATA Labs CBC & Chem 7: 10/19/20 06:17 10/19/20 06:17 Labs: Abnormal Lab Results 06/10/18/20 10/18/20 06:17 09:50 09:50 WBC 14.5 H 14.1 H RDW 15.2 H 15.4 H Neut % (Auto) 84.2 H 87.9 H Lymph % (Auto) 9.0 L 7.3 L Lymph # (Auto) 1.30 L 1.03 L Absolute Neutrophils 12.19 H 12.42 H Sodium Potassium 3.0 L Chloride 95 L BUN 7 L Calcium 8.5 L Phosphorus Alkaline Phosphatase 126 H Lactate Dehydrogenase 297 H Total Protein 5.4 L Albumin 2.4 L Albumin/Globulin Ratio 0.8 L 10/17/20 10/17/20 10/16/20 07:57 07:57 09:10 WBC 16.3 H RDW 15.7 H Neut % (Auto) 92.6 H Lymph % (Auto) 4.2 L Lymph # (Auto) 0.69 L Absolute Neutrophils 15.12 H Sodium 131 L Potassium 2.9 L* Chloride BUN 5 L 6 L Calcium 8.4 L 8.2 L Phosphorus 1.9 L 2.3 L Alkaline Phosphatase 143 H 133 H Lactate Dehydrogenase 307 H 245 H Total Protein 5.5 L 5.8 L Albumin 2.6 L 2.6 L Albumin/Globulin Ratio 0.9 L 0.8 L 10/16/20 09:10 WBC 14.1 H RDW 15.7 H Neut % (Auto) 91.6 H Lymph % (Auto) 5.1 L Lymph # (Auto) 0.72 L Absolute Neutrophils 12.85 H Sodium Potassium Chloride BUN Calcium Phosphorus Alkaline Phosphatase Lactate Dehydrogenase Total Protein Albumin Albumin/Globulin Ratio Meds: Medications Acetaminophen (Acetaminophen 325 Mg Tablet) 650 mg PO Q4-6HP PRN; Protocol PRN Reason: Per Pain Protocol/Fever > 101 Hydrocodone Bitart/Acetaminophen (Hydrocodone/Apap 10/325mg Tablet) 1 tab PO Q4HP PRN; Protocol PRN Reason: Per Pain Protocol Amlodipine Besylate (Amlodipine 10 Mg Tablet) 10 mg PO QDAY [facility] Last Admin: 10/18/20 10:15 Dose: 10 mg Documented by: Aspirin (Aspirin 81 Mg Tab.Chew) 81 mg PO DAILY [facility] Last Admin: 10/18/20 08:34 Dose: 81 mg Documented by: Bisacodyl (Bisacodyl 10 Mg Supp.Rect) 10 mg AL Q2-3DAYS PRN PRN Reason: Constipation Docusate Sodium (Docusate Sodium 100 Mg Capsule) 100 mg PO BID [facility] Last Admin: 10/18/20 20:12 Dose: 100 mg Documented by: Heparin Sodium (Porcine) (Heparin 5,000 Unit/Ml Vial) 5,000 unit SQ Q12 [facility] Last Admin: 10/18/20 20:12 Dose: 5,000 unit Documented by: Sodium Chloride (Sodium Chloride 0.9%) 250 mls @ 20 mls/hr IV .[id number] [facility] Last Admin: 10/19/20 02:09 Dose: Not Given Documented by: Acetaminophen (Ofirmev) 650 mg in 65 mls @ 130 mls/hr IV Q6HP PRN; Protocol PRN Reason: Per Pain Protocol/Fever > 101 Magnesium Sulfate (Magnesium Sulfate) 2 gm in 50 mls @ 50 mls/hr IV UD PRN PRN Reason: MG = or < 1.7 Potassium Chloride 40 meq/ (Dextrose) 520 mls @ 130 mls/hr IV UD PRN PRN Reason: K+ = or < 3.5 Last Infusion: 10/16/20 18:55 Dose: Infused Documented by: Iron Carb/Multivit/Protective Services Case Worker/Folic Acid (Multivit,Ther Iron,Ca,Fa & Min 1 Tablet) 1 tab PO DAILY [facility] Last Admin: 10/18/20 08:35 Dose: 1 tab Documented by: Isosorbide Mononitrate (Isosorbide Mononitrate 60 Mg Tab.Xl.24h) 60 mg PO DAILY [facility] Last Admin: 10/18/20 08:34 Dose: 60 mg Documented by: Melatonin (Melatonin 3 Mg Tablet) 3 mg PO HSP PRN PRN Reason: Insomnia Metoprolol Tartrate (Metoprolol Tartrate 25 Mg Tablet) 12.5 mg PO BID [facility] Last Admin: 10/18/20 20:13 Dose: 12.5 mg Documented by: Ondansetron HCl (Ondansetron 4 Mg Odt Tablet) 4 mg SL Q4-6HP PRN; Protocol PRN Reason: Nausea And Vomiting Ondansetron HCl (Ondansetron 4 Mg/2 Ml Vial) 4 mg IV Q4-6HP PRN; Protocol PRN Reason: Nausea And Vomiting Umeclidinium [ Incruse Ellipta] 62. 5 Mcg/Actuation Inhaler 1 dose INH DAILY [facility] Last Admin: 10/18/20 08:50 Dose: Not Given Documented by: Polyethylene Glycol (Polyethylene Glycol 3350 17 Gm Packet) 17 gm PO DAILYP PRN PRN Reason: Constipation Potassium Chloride (Potassium Chloride 20 Meq Packet) 40 meq PO DAILYP PRN PRN Reason: K+ < 3.5 Last Admin: 10/18/20 12:08 Dose: 40 meq Documented by: Potassium/Phosphorus/Sodium (Neutra Phos 1 Packet) 2 packet PO ONCE PRN PRN Reason: For phosphorus less than 2.5 Last Admin: 10/17/20 10:49 Dose: 2 packet Documented by: Senna/Docusate Sodium (Sennosides/Docusate Sodium 1 Tab Tablet) 1 tab PO HS [facility] Last Admin: 10/18/20 20:12 Dose: 1 tab Documented by: Sodium Chloride (0.9 % Sodium Chloride 10 Ml Syringe) 10 ml IV Q8 [facility] Last Admin: 10/19/20 04:15 Dose: 10 ml Documented by: Vancomycin HCl (Vancomycin Oral Eve 1,000 Mg/10 Ml Bottle) 250 mg PO QID [facility] Last Admin: 10/18/20 20:13 Dose: 250 mg Documented by: A/P Narrative A/P Narrative: A: *C. difficile enterocolitis: *Septic shock: resolved *Low potassium/phosphorus/sodium *LLL PNA: clinically and radiological resolution noted *Acute change mental status: Resolved *Chronic decubitis/right gluteal ulcer: no abscess/osteomyelitis: -surgeon Dr. Sammy Tavares recommends outpatient follow-up. No evidence of abscess or sinus. Ongoing wound care *h/o CAD: continue aspirin. *Anxiety disorder: *h/o COPD: cont home IH's *History of tobacco smoking dependence *Severe hearing impairment PLAN: -Oral vancomycin -Nutrition support/wound care -Frequent turning/decubitus precaution -Replace electrolytes as indicated -continue aspirin. Restarted BB/ccb -PT OT nutrition support -f/u with wound care -Discharge planning likely SNF, case management to coordinate -Prophylaxis: Heparin Time Spent With Patient Time: Total time spent is greater than 50% in coordination of care (as documented) at patient's floor/unit and/or counseling patient: QUALITY VTE Deep Vein Thrombosis/Pulmonary Embolism Present on Admission: No
[2020-10-19 08:13] LABS: ALT/SGPT 11 U/L (<40); AST/SGOT 15 U/L (<32); Albumin 2.6 gm/dL (3.2-5.2); Albumin/Globulin Ratio 0.9 (1.0-2.3); Alkaline Phosphatase 124 U/L (39-117); Bilirubin,Direct < 0.2 mg/dL (0-0.3); Bilirubin,Total 0.4 mg/dL (0.1-1.0); Blood Urea Nitrogen 9 mg/dL (8-23); Calcium 8.4 mg/dL (8.6-10.4); Carbon Dioxide 29 mmol/L (22-30); Chloride 93 mmol/L (96-108); Globulin 2.8 gm/dL (2.2-3.7); Glomerular Filtration Rate 84; Glucose 79 mg/dL (70-105); Lactate Dehydrogenase 242 U/L (135-225); Phosphorous 2.1 mg/dL (2.5-4.5); Triglycerides 116 mg/dL (<150); Uric Acid 3.1 mg/dL (2.5-8.0)
[2020-10-19] MEDS ORDERED: 0.9 % SODIUM CHLORIDE 750 ML IV SCH (08:30)
[2020-10-19] MEDS: ASPIRIN 81 MG TAB.CHEW PO SCH (08:42)
[2020-10-19] MEDS: amLODIPine 10 MG TABLET PO SCH (08:42)
[2020-10-19] MEDS: NEUTRA PHOS 1 PACKET PO SCH ×2 (08:42→20:47)
[2020-10-19] MEDS: ISOSORBIDE MONONITRATE 60 MG TAB.XL.24H PO SCH (08:42)
[2020-10-19] MEDS: METOPROLOL TARTRATE 25 MG TABLET PO SCH ×2 (08:42→20:48)
[2020-10-19] MEDS: HEPARIN 5,000 UNIT/ML VIAL SQ SCH ×2 (08:42→20:48)
[2020-10-19] MEDS: MULTIVIT,THER IRON,CA,FA & MIN 1 TABLET PO SCH (08:43)
[2020-10-19] MEDS: DOCUSATE SODIUM 100 MG CAPSULE PO SCH ×2 (08:43→20:48)
[2020-10-19] MEDS: Umeclidinium [Incruse Ellipta] 62.5 mcg/actuation Inhaler INH SCH (08:43)
[2020-10-19] MEDS: VANCOMYCIN ORAL SOL 1,000 MG/10 ML BOTTLE PO SCH ×4 (08:43→20:48)
[2020-10-19] MEDS ORDERED: POTASSIUM CHLORIDE 40 MEQ in DEXTROSE 5% IN WATER 500 ML IV ONE (09:00)
[2020-10-19 18:44] LABS: Blood Urea Nitrogen 10 mg/dL (8-23); Calcium 8.7 mg/dL (8.6-10.4); Carbon Dioxide 29 mmol/L (22-30); Chloride 92 mmol/L (96-108); Glomerular Filtration Rate 84; Glucose 73 mg/dL (70-105); Phosphorous 2.2 mg/dL (2.5-4.5)
[2020-10-19] MEDS ORDERED: SODIUM CHLORIDE 1 GM TABLET PO ONE (19:20)
[2020-10-19] MEDS: SENNOSIDES/DOCUSATE SODIUM 1 TAB TABLET PO SCH (20:48)
[2020-10-20] MEDS: 0.9 % SODIUM CHLORIDE 250 ML IV SCH (02:52)
[2020-10-20] MEDS: 0.9 % SODIUM CHLORIDE 10 ML SYRINGE IV SCH ×2 (04:22→13:36)
[2020-10-20] MEDS: Umeclidinium [Incruse Ellipta] 62.5 mcg/actuation Inhaler INH SCH (09:41)
[2020-10-20] MEDS: HEPARIN 5,000 UNIT/ML VIAL SQ SCH (09:52)
[2020-10-20] MEDS: METOPROLOL TARTRATE 25 MG TABLET PO SCH (09:52)
[2020-10-20] MEDS: amLODIPine 10 MG TABLET PO SCH (09:53)
[2020-10-20] MEDS: DOCUSATE SODIUM 100 MG CAPSULE PO SCH (09:53)
[2020-10-20] MEDS: ASPIRIN 81 MG TAB.CHEW PO SCH (09:53)
[2020-10-20] MEDS: MULTIVIT,THER IRON,CA,FA & MIN 1 TABLET PO SCH (09:53)
[2020-10-20] MEDS: VANCOMYCIN ORAL SOL 1,000 MG/10 ML BOTTLE PO SCH ×2 (09:53→13:14)
[2020-10-20] MEDS: ISOSORBIDE MONONITRATE 60 MG TAB.XL.24H PO SCH (09:53)
== END 2020-10-20 14:30 | DRG 871 ==
LOC: ED 10:48 → ICU 14:42 → MEDSUR 10-15 15:20
PROVIDERS: ADMIT Internal Medicine; ATTEND Internal Medicine